=== PATIENT | male | born 1950 | race Caucasian/White ===

== ENCOUNTER 2017-05-24 17:00 | Inpatient (IN) | payer OTHER, BC ==
[2017-05-24] MEDS ORDERED: NS 0.9% 1000 ML* 1,000 ML IV ONE (17:17)
[2017-05-24 17:52] LABS: ABS Basophils 0 10^3/ul (0-0.2); ABS Eosinophils 0.1 10^3/ul (0-0.6); ABS Monocytes 0.7 10^3/ul (0-0.8); ABS Neutrophils 1.5 10^3/ul (1.5-7.7); ABS Nucleated RBC 0 10^3/ul; Eosinophil % 2.6 % (0-6); Hematocrit 46 % (42-52); Lymphocyte % 29.9 % (25-47); Mean Corpuscular HGB Conc 35 g/dl (31-36); Mean Corpuscular Hemoglobin 32 pg (27-31); Mean Corpuscular Volume 90 fL (80-94); Mean Platelet Volume 9 um3 (7.4-10.4); Nucleated Red Blood Cells % 0.1; Platelet Count 165 10^3/ul (150-450); Red Blood Count 5.06 10^6/ul (4.0-5.4); Red Cell Distribution Width 13 % (10.5-15); White Blood Count 3.3 10^3/ul (3.5-10.8)
--- NOTE | 2017-05-24 18:04 | RAD ---
INDICATION: Palpitations. COMPARISON: Comparison is made with a prior chest x-ray study from July 07, 2006. TECHNIQUE: A portable view of the chest was obtained. FINDINGS: Cardiac and mediastinal contours appear to be within normal limits. The lungs are clear. No pleural effusion is seen. IMPRESSION: NO EVIDENCE FOR ACUTE DISEASE.
[2017-05-24 18:07] LABS: EGFR Non-African American 68.5 (>60)
[2017-05-24] MEDS ORDERED: Potassium Chlor TAB* 20 MEQ TAB.ER PO ONE (19:26)
[2017-05-24] MEDS ORDERED: NS 0.9% 1000 ML* 1,000 ML IV SCH (19:45)
[2017-05-24] MEDS ORDERED: Acetaminophen TAB* 325 MG PO PRN (20:17)
[2017-05-24] MEDS: Enoxaparin(*) 80 MG/0.8 ML SYR SUBCUT SCH (22:14)
--- NOTE | 2017-05-24 22:16 | HP ---
AMENDED REPORT NOW INCLUDES COSIGNER DESIGNATION - ESIGNED BEFORE ADJUSTMENT ADMISSION HISTORY AND PHYSICAL: DATE OF ADMISSION: 05/24/17 PRIMARY CARE PHYSICIAN: Dr. Bran Roper at the [facility] in [place]. ADMITTING AND ATTENDING PHYSICIAN: Dr. Denise Bates.* (DICTATED BY SADIE PEARCE NP) CHIEF COMPLAINT: Syncope and irregular heart rate. HISTORY OF PRESENT ILLNESS: This is a very pleasant 67-year-old male patient who presented to the emergency department via EMS for a new onset atrial fibrillation. The patient reports that he had been experiencing shortness of breath over the summer and into the fall. He did have a full cardiac workup with the [facility], I think in November or December he reports and reports that that workup was completely negative. At that time, they showed no abnormalities on stress test. He just had some mild sleep apnea that was diagnosed at that time , but no cardiac issues were noted. The patient says he still has shortness of breath intermittently. 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 The patient runs dozens of miles every day. He said up to about the first 4 miles he runs, he still been clinically short of breath, which is unusual for him. Yesterday, he was doing high intensity workout. He began to feel very tired. He said he was feeling like he was catching a cold from Monday on with cough and just general malaise. He went to bed and then every time he tried to get up to go to the bathroom, he syncopized at home. He syncopized 3 times until he finally got to the point where he was so exhausted. He went to be evaluated with his doctor at the [facility] and they sent him to the emergency department for evaluation. PAST MEDICAL HISTORY: Significant only for enlarged prostate for which he takes finasteride and Flomax. PAST SURGICAL HISTORY: Reports none. MEDICATIONS: At home: 1. Finasteride 5 mg daily. 2. Flomax 0.4 mg daily. ALLERGIES: The patient has no known drug allergies. FAMILY HISTORY: Mother with cardiac disease and [place] and at age 80. SOCIAL HISTORY: The patient denies smoking, any alcohol use, or any illicit drug use. 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 REVIEW OF SYSTEMS: The patient reports some mild dizziness right now. No shortness of breath currently, but does get short of breath with any mild exertion. Denies any acute chest pain. No nausea. No vomiting. No abdominal pain. No urinary complaints. Some muscle weakness during the syncopal episodes , but currently none now. Reports no swelling, no edema, no blurry vision, no headaches, no further constitutional complaints. PHYSICAL EXAMINATION GENERAL: The patient is awake and alert. VITAL SIGNS: Currently blood pressure 100/62, O2 saturation 98%, respiratory rate 16, heart rate 77 and in atrial fibrillation, temperature is 100.1. HEENT: The patient is atraumatic and normocephalic. PERRLA with nonicteric sclerae. Oral mucosa is moist. NECK: Supple, nontender, no JVD noted. No thyromegaly appreciated. LUNGS: Clear bilaterally to auscultation with no wheezing, rhonchi, or rales. He does have an unproductive cough. CARDIOVASCULAR: Rate is in the 70s, very irregular. Atrial fibrillation on telemetry noted. No ectopy noted on his EKG. ABDOMEN: Soft, nontender, nondistended. No organomegaly appreciated. Positive bowel sounds in all 4 quadrants. MUSCULOSKELETAL: There is no clubbing, no cyanosis, no edema. He has gross motor and sensation intact. He is ambulatory, although weaker at this point and does become dizzy. NEUROLOGIC: Grossly intact with no focal deficits. PSYCHIATRIC: Cooperative and appropriate. DIAGNOSTIC STUDIES/LAB DATA: WBCs 3.3, RBCs 5.06, hemoglobin 16, hematocrit 46 , MCV 90, MCH 32, platelets 165. Sodium 137, potassium 3.7, chloride 103, CO2 26, BUN 19, creatinine 1.07, GFR 68.5, glucose 107, calcium 8.8, magnesium 2.2, bilirubin 0.8. AST 24, ALT 23, alk phos 88. First troponin 0.08. BNP 254. Total protein 6.1. TSH 1.69. EKG shows atrial fibrillation with no further ectopy and no ST segment changes. Chest x-ray shows no acute cardiopulmonary process. IMPRESSION: This is a 67-year-old male patient who is normally very healthy, but very little medical history. He was syncopized 3 times in the last 24 hours and comes to see the emergency department with a mild fever, complaint of cough and some malaise and new onset atrial fibrillation. PLAN: The patient has been admitted. I have consulted Cardiology and discussed the case with Dr. Annalisa Gupta. I have given the patient therapeutic dose of Lovenox 1 mg/kg based on his body weight of 77 kg. The patient will be n.p.o. after midnight in the event that Cardiology would like to do more invasive testing tomorrow. I will try to get a hold of his workup from the [facility] his cardiac workup. I have left a message with the [facility] to call tomorrow to see if we can get copies of his stress test, his EKGs, and echocardiogram that were done in December of last year. The patient has already received a fluid bolus in the ER. He is still moderately hypotensive. We will keep him on maintenance fluids of 75 mL/hour. At this point, the patient does not have any chest pain, will not likely need nitrates. He can have a regular dinner tonight. He is a full code. We will continue his finasteride, but hold his Flomax in light of his hypotension. We will also hold his supplements. He takes iron, D3, and vitamin C. These will be held for now. He can have Tylenol for his fever. I would like to screen him for influenza and if he can get anything up with his cough, we can screen his sputum and see if there is anything productive in his cough right now that may be contributing either a viral or bacterial illness. Given the clear chest x-ray, though I feel that may be just might have something viral at this point, but it would be worth it to explore this a little further. The rest of the patient's course will be determined by further diagnostics, laboratories and any other input from other providers as warranted during this admission. I have discussed this plan of care with Dr. Bates and Dr. Gupta, who are in agreement with the plan. SADIE PEARCE, [place] [id number]/[facility] #: [id number] MARQUES
[2017-05-25 05:30] LABS: ABS Basophils 0 10^3/ul (0-0.2); ABS Eosinophils 0.3 10^3/ul (0-0.6); ABS Lymphocytes 1.3 10^3/ul (1.0-4.8); ABS Monocytes 0.4 10^3/ul (0-0.8); ABS Nucleated RBC 0 10^3/ul; Eosinophil % 11.4 % (0-6); Hematocrit 44 % (42-52); Lymphocyte % 41.9 % (25-47); Mean Corpuscular HGB Conc 34 g/dl (31-36); Mean Corpuscular Hemoglobin 31 pg (27-31); Mean Corpuscular Volume 90 fL (80-94); Mean Platelet Volume 9 um3 (7.4-10.4); Nucleated Red Blood Cells % 0.2; Platelet Count 150 10^3/ul (150-450); Red Blood Count 4.84 10^6/ul (4.0-5.4); Red Cell Distribution Width 13 % (10.5-15)
[2017-05-25 05:42] LABS: EGFR Non-African American 83.7 (>60)
[2017-05-25 06:47] LABS: Urine Appearance Clear; Urine Blood Negative (Negative); Urine Color Yellow; Urine Ketones Negative (Negative); Urine Protein Negative (Negative); Urine Urobilinogen Negative (Negative)
[2017-05-25] MEDS: Enoxaparin(*) 80 MG/0.8 ML SYR SUBCUT SCH ×2 (08:45→19:28)
[2017-05-25] MEDS: Finasteride TAB* 5 MG PO SCH (08:46)
[2017-05-25] MEDS: Oseltamivir CAP* 75 MG CAP PO SCH ×2 (12:35→19:28)
--- NOTE | 2017-05-25 12:48 | PN ---
Subjective Date of Service: 05/25/17 Interval History: Patient seen and examined at bedside. Denies fever, chills, shortness of breath , chest discomfort, palpitations, N/V/D. Tele: Afib/flutter, rate 60-70's. Occasional HR up to 100's. Noted to have 2 second pauses. Family History: Unchanged from Admission Social History: Unchanged from Admission Past Medical History: Unchanged from Admission Objective Active Medications: Acetaminophen (Tylenol Tab*) 650 mg PO Q6H PRN Reason: FEVER/HEADACHE Enoxaparin Sodium (Lovenox(*)) 80 mg SUBCUT Q12H JENNIFER Finasteride (Proscar Tab*) 5 mg PO DAILY JENNIFER Sodium Chloride (Ns 0.9% 1000 Ml*) 1,000 mls @ 75 mls/hr IV PER RATE JENNIFER Oseltamivir Phosphate (Tamiflu Cap*) 75 mg PO BID JENNIFER Stop: 05/29/17 21:01 Vital Signs - 8 hr 05/25/17 05/25/17 05/25/17 07:16 11:45 11:47 Temperature 98.2 F 98.2 F Pulse Rate 57 85 94 Respiratory 16 16 Rate Blood Pressure 103/63 103/67 86/54 (mmHg) O2 Sat by Pulse 94 97 Oximetry Oxygen Devices in Use Now: None Appearance: NAD, sitting up in bed Ears/Nose/Mouth/Throat: Mucous Membranes Moist Respiratory: Symmetrical Chest Expansion and Respiratory Effort, Clear to Auscultation Cardiovascular: NL Sounds; No Murmurs; No JVD, - - Heart rate irregular Abdominal: NL Sounds; No Tenderness; No Distention Extremities: No Edema Skin: No Rash or Ulcers Neurological: Alert and Oriented x 3, NL Muscle Strength and Tone Lines/Tubes/Other Access: Clean, Dry and Intact Peripheral IV - site benign Nutrition: Taking PO's Result Diagrams: 05/25/17 05:14 05/26/17 06:04 Microbiology and Other Data: Microbiology 05/24/17 21:25 Influenza Types A,B Antigen (CHUCKIE) - Final Nasal Specimen received for Influenza A/B Molecular testing Assess/Plan/Problems-Billing Assessment: - Patient Problems (1) New onset a-fib Code(s): I48.91 - UNSPECIFIED ATRIAL FIBRILLATION SNOMED Code(s): 55725164 Comment: - Suspect secondary to Influenza - Rate is controlled - Echo pending - Due to baseline bradycardia, no betablockers or rate control agents - Cardiology consult, input appreciated - Continue Lovenox for now (2) Influenza B Code(s): J10.1 - FLU DUE TO OTH IDENT INFLUENZA VIRUS W OTH RESP MANIFEST SNOMED Code(s): 08992661 Comment: - Started on Tamiflu - Continue Supportive care (3) Syncope Code(s): R55 - SYNCOPE AND COLLAPSE SNOMED Code(s): 557187330 Comment: - 3 times in 24 hours - Suspect secondary to low cardiac output r/t Afib and dehydration for Influenza - Pt was also orthostatic on admission and continues to have orthostasis ( improving) - Check orthostatic VS in AM - Continue IVFs (4) BPH (benign prostatic hyperplasia) Code(s): N40.0 - BENIGN PROSTATIC HYPERPLASIA WITHOUT LOWER URINRY TRACT SYMP SNOMED Code(s): 136827513 Comment: - Continue finasteride and flomax (5) DVT prophylaxis Code(s): QYM9749 - SNOMED Code(s): 215362432 Comment: - Lovenox (6) Full code status Code(s): Z78.9 - OTHER SPECIFIED HEALTH STATUS SNOMED Code(s): 269033585 Status and Disposition: OBV to Inpatient. Discharge to home when medically stable.
[2017-05-25] MEDS: NS 0.9% 1000 ML* 1,000 ML IV SCH ×2 (13:14→19:28)
--- NOTE | 2017-05-25 16:54 | ECHO ---
Patient: LEXA BARRERA Rec#: [id number] : 1950 Date: 05/25/2017 Age: 67y Height: 177.8 cm / 70.0 in Weight: 78.9 kg / 173.9 lbs Sex: M BSA: 2 Room#: [facility] Admit Date#: 05/24/2017 Type: Inpatient Referring: Cordelia La NP Reading: Mark Coleman MD Gore Cutter: Mira Simon RN RDCS CC: Kam De Los Santos Transthoracic Echocardiogram Indication: Atrial fibrillation, syncope BP: 86/54 HR: 70 Rhythm: NSR with PVCs Findings History: NINA, BPH Technical Comments: The study quality is fair. Left Ventricle: The left ventricular chamber size is normal. Mild concentric left ventricular hypertrophy is observed. Global left ventricular wall motion and contractility are within normal limits. There is normal left ventricular systolic function. The estimated ejection fraction is 55-60%. The assessment of diastolic function is non-diagnostic. Left Atrium: The left atrium is mild to moderately dilated. Right Ventricle: The right ventricular chamber size and systolic function are within normal limits. Right Atrium: The right atrium is mild to moderately dilated. Aortic Valve: The aortic valve is trileaflet. The aortic valve leaflets are mildly thickened. There is a trace of aortic regurgitation. There is no evidence of aortic stenosis. Mitral Valve: The mitral valve leaflets are mildly thickened. There is mild mitral regurgitation. There is no evidence of mitral stenosis. Tricuspid Valve: The tricuspid valve leaflets are normal. There is trace to mild tricuspid regurgitation. No pulmonary hypertension is noted. There is no tricuspid stenosis. Pulmonic Valve: The pulmonic valve appears normal. There is trace to mild pulmonic regurgitation. There is no pulmonic stenosis. Pericardium: There is no significant pericardial effusion. A pericardial fat pad is visualized. Aorta: There is mild dilatation of the ascending aorta. There is no dilatation of the aortic arch. There is no dilation of the aortic root. Pulmonary Artery: The main pulmonary artery appears normal. Venous: The venous system is not well visualized. The inferior vena cava appears normal in size. There is less than 50% respiratory change in the inferior vena cava dimension. Summary: There was not any prior study for comparison. Conclusions Mild concentric left ventricular hypertrophy is observed. The estimated ejection fraction is 55-60%. The assessment of diastolic function is non-diagnostic. There is normal left ventricular systolic function. The left atrium is mild to moderately dilated. The right atrium is mild to moderately dilated. There is a trace of aortic regurgitation. There is mild mitral regurgitation. There is trace to mild tricuspid regurgitation. There is trace to mild pulmonic regurgitation. There is mild dilatation of the ascending aorta. Measurements Name Value Normal Range RVDdMajor (2D) 3.3 cm (2.2 - 4.4) RAd ISD 4CH 6 cm (3.4 - 4.9) RA (A4C)W 4.2 cm (2.9 - 4.6) IVSd (2D) 1.2 cm (0.6 - 1) LVPWd (2D) 1.2 cm (0.6 - 1) LVIDd (2D) 5 cm (3.6 - 5.4) LVIDs (2D) 3.7 cm - LV FS (2D) 26 % (25 - 45) Aortic Annulus 2.2 cm (1.4 - 2.6) Ao root diameter (2D) 3.4 cm (2.1 - 3.5) Ascending Ao 3.5 cm (2.1 - 3.4) Aortic arch 2.4 cm (1.8 - 3.4) LA dimension (AP) 2D 3.6 cm (2.3 - 3.8) LAd ISD 4CH 6.5 cm (2.9 - 5.3) LA ISD 4CH W 4 cm (2.5 - 4.5) Name Value Normal Range LA ESV SP 4CH (A/L) 56 ml - LA ESV SP 2CH (A/L) 50 ml - LA ESV BP (A/L) 61 ml - LA ESV BP (A/L) index 31 ml/m2 - LA ESV SP 4CH (MOD) 51 ml - LA ESV SP 2CH (MOD) 47 ml - Name Value Normal Range MV E-wave Vmax 0.52 m/sec - MV deceleration time 246 msec - LV septal e' Vmax 0.08 m/sec - LV lateral e' Vmax 0.12 m/sec - LV E:e' septal ratio 6.5 ratio - LV E:e' lateral ratio 4.3 ratio - Name Value Normal Range AV Vmax 1.1 m/sec - AV VTI 20.5 cm - AV peak gradient 4.7 mmHg - AV mean gradient 3.1 mmHg - LVOT Vmax 0.92 m/sec - LVOT VTI 16.9 cm - LVOT peak gradient 3.5 mmHg - LVOT mean gradient 2 mmHg - REGGIE Vmax 0.63 m/sec - Name Value Normal Range TR Vmax 2 m/sec - TR peak gradient 16 mmHg - RAP 8 mmHg - RVSP 24 mmHg - IVC diameter 1.7 cm - Name Value Normal Range PV Vmax 0.65 m/sec -
--- NOTE | 2017-05-25 19:58 | CONS ---
CC: [facility], Hospitalist Service * CARDIOLOGY CONSULTATION: DATE OF CONSULTATION: 05/25/17 HISTORY OF PRESENT ILLNESS: I was asked by hospitalist service to see this 67- year- old male patient who presented to the hospital with recurrent syncopal episodes and found to be atrial fibrillation. The patient was very athletic with a little past medical history other than large prostate. He is a marathon runner regularly with multiple miles on a daily basis. His resting baseline heart rate according to the patient is in the 30s. In the emergency room, he was found to be in atrial fibrillation; however, his heart rate was not fair. He was admitted to telemetry floor for treatment. He has not been feeling well actually for a few days now, malaise, fatigue, lack of energy and some fever and cough. He was tested positive for influenza A flu syndrome. He is receiving IV fluids. Cardiology consult was requested because of the atrial fibrillation, which he does not feel actually. He gives no history of atrial fibrillation in the past. He gives no history of diabetes, congenital heart disease, rheumatic fever, endocarditis. He gives no history of hypertension. No hyperlipidemia. No tobacco consumption. He rarely drink alcohol. He does actually consume significant amount of caffeinated drinks weekly. His review of all other systems essentially is negative. He gives no nausea, no vomiting, no hematochezia, no skin rash, no abdominal pain, no history of myocardial infarction, no history of coronary artery disease in the past other than feeling fatigued, tired, and exhausted. PAST MEDICAL HISTORY: Significant for prostate enlargement and he does receive Flomax and finasteride. PAST SURGICAL HISTORY: None. MEDICATIONS: As an outpatient include: 1. Flomax 0.4 mg daily. 2. Finasteride 5 mg daily. ALLERGIES: He has no known drug allergies. FAMILY HISTORY: He said his mom because of myocardial infarction, although was marked as premature. SOCIAL HISTORY: He gives no history of smoking. No drug abuse. He drinks alcohol socially. REVIEW OF SYSTEMS: His review of all other systems essentially is negative. PHYSICAL EXAMINATION: On exam, he is awake, alert, and oriented. He is not in acute distress. He looks much younger than his age. His vitals, blood pressure is 103/67, pulse is 75. He is in atrial fibrillation, irregularly irregular. He is afebrile with temperature 98.2. Today on exam, normocephalic , atraumatic head. Ears, Nose, and Throat: Essentially benign. Neck: Supple. JVP is not elevated. No carotid bruits. No masses in the neck is appreciated. Chest: Clear to auscultation. No rales, no wheezes, no added sounds appreciated. Heart: Normal but irregularly irregular. S1, S2. No added sounds. No gallops, no rubs. Abdomen: Benign, soft. Positive bowel sounds. Extremities: No edema. No cyanosis. No clubbing. Skin exam is normal. Psych: Normal affect and mood. BABY NURSE: No focal deficit is appreciated. DIAGNOSTIC STUDIES/LAB DATA: His EKG showed him to be in atrial fibrillation, nonspecific T-wave abnormality, heart rate is in the 70s. His labs showed the following: White blood cells 3, hemoglobin 15, hematocrit 44, and platelets 150. His chemistry: Sodium 137, potassium 4.2, chloride 109 , total CO2 23, BUN 18, creatinine 0.90. His troponin is 0.08 and then 0.07 and then 0.07. His BNP was 264. TSH was 1.69. His chest x-ray was reported to have no evidence for acute disease. IMPRESSION: The patient is a 67-year-old with: 1. Presentation with feeling malaise, fatigue, the flu symptoms and tested positive for influenza A flu illness. 2. Atrial fibrillation, unknown duration, presumptive, new, heart rate is less than 100. He is asymptomatic. He does not feel it. 3. Recurrent syncope x3, which could be multifactorial in nature including flu influenza syndrome, atrial fibrillation, dehydration. 4. The patient is a marathon runner extensively and he does use high caffeinated consumption drinks. 5. Abnormal EKG as described. 6. Unknown current left ventricular systolic function. PLAN: Lengthy discussion. 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 As discussed, I already discussed with him. They are willing to see him for a consultation. According to EP services, he is a good candidate actually for radiofrequency ablation for treatment for his atrial fibrillation. I have expressed this to the patient. He is willing to proceed. Alternatively, we can do transesophageal echocardiogram with cardioversion. Risks of unsuccessful or risks of significant long pauses, asystole, and prolonged recovery, sinus recovery time discussed with the patient. He wants to wait and see at the present time. I answered all his concerns and questions up to his satisfaction. We will follow him closely. We will make further recommendations accordingly. Before he get discharged from [facility], we will arrange for Electrophysiology consultation at [facility]. [id number]/[facility] #: [id number] MARQUES
[2017-05-26] MEDS: NS 0.9% 1000 ML* 1,000 ML IV SCH ×2 (01:59→08:42)
[2017-05-26 06:41] LABS: EGFR Non-African American 97.2 (>60)
[2017-05-26] MEDS: Finasteride TAB* 5 MG PO SCH (08:38)
[2017-05-26] MEDS: Enoxaparin(*) 80 MG/0.8 ML SYR SUBCUT SCH (08:38)
[2017-05-26] MEDS: Oseltamivir CAP* 75 MG CAP PO SCH (08:38)
[2017-05-26 08:54] VITALS: BP 104/69
[2017-05-26] MEDS ORDERED: Finasteride TAB* 5 MG PO SCH (09:51)
--- NOTE | 2017-05-26 11:49 | ED ---
Mauri Thompson Angela, scribed for Jonathan Mckeon MD on 05/24/17 at 1709 . Palpitations / Dysrhythmia - HPI Summary HPI Summary: This pt is a 67 y/o male [place] [facility] [place] clinic for new onset of atrial fibrillation. Pt reports he had 3 syncopal episode last night trying to go to the bathroom. Pt notes he took his pulses and noticed it was irregular. He went to the CT clinic this morning and was diagnosed with a new onset of atrial fibrillation. He currently notes some dizziness with movement. Pt denies chest pain or SOB. PMHx: BPH. Pt takes 2 pills for prostate. - History of Current Complaint Time Seen by Provider: 05/24/17 17:06 Hx Obtained From: Patient Onset/Duration: Lasting Hours, Still Present Timing: Constant Severity Initially: Moderate Character: Irregular Aggravating: Exertion, Position Alleviating: Nothing Associated Signs & Symptoms: Dizzy, Syncope - last night - Allergy/Home Medications Allergies/Adverse Reactions: Allergies Allergy/AdvReac Type Severity Reaction Status Date / Time No Known Allergies Allergy Verified 11/25/13 11:25 Home Medications: Home Medications Finasteride TAB* [Proscar TAB*] 5 mg PO DAILY 05/24/17 [History Confirmed ] PMH/Surg Hx/FS Hx/Imm Hx Endocrine/Hematology History: Denies: Hx Diabetes, Hx Thyroid Disease Cardiovascular History: Reports: Other Cardiovascular Problems/Disorders - pt is a runner. low heart rate noted today Denies: Hx Congestive Heart Failure, Hx Hypertension, Hx Pacemaker/ICD Respiratory History: Denies: Hx Asthma, Hx Chronic Obstructive Pulmonary Disease (COPD) GI History: Denies: Hx Ulcer History: Reports: Hx Benign Prostatic Hyperplasia Denies: Hx Dialysis, Hx Renal Disease Musculoskeletal History: Denies: Hx Rheumatoid Arthritis, Hx Osteoporosis Sensory History: Reports: Hx Contacts or Glasses Denies: Hx Hearing Aid Opthamlomology History: Reports: Hx Contacts or Glasses Psychiatric History: Denies: Hx Panic Disorder - Surgical History Surgery Procedure, Year, and Place: tonsillectomy Infectious Disease History: Denies: Hx Clostridium Difficile, Hx Hepatitis, Hx Human Immunodeficiency Virus (HIV), Hx of Known/Suspected MRSA, Hx Shingles, Hx Tuberculosis, Hx Known/ Suspected VRE, Hx Known/Suspected VRSA, History Other Infectious Disease - Family History Known Family History: Positive: Cardiac Disease - Mother: fatal PR Family History: Father: BPH and dementia. - Social History Alcohol Use: None Substance Use Type: Reports: None Smoking Status (MU): Never Smoked Tobacco Have You Smoked in the Last Year: No Review of Systems Negative: Fever, Chills Cardiovascular: Other - new onset of atrial fibrillation Negative: Chest Pain Negative: Shortness Of Breath Neurological: Other - POS: dizziness Positive: Syncope - last night All Other Systems Reviewed And Are Negative: Yes Physical Exam - Summary Physical Exam Summary: VITAL SIGNS: Reviewed. GENERAL: Patient is a well-developed and nourished male who is lying comfortable in the stretcher. Patient is not in any acute respiratory distress. HEAD AND FACE: No signs of trauma. No ecchymosis, hematomas or skull depressions. No sinus tenderness. EYES: PERRLA, EOMI x 2, No injected conjunctiva, no nystagmus. EARS: Hearing grossly intact. Ear canals and tympanic membranes are within normal limits. MOUTH: Oropharynx within normal limits. NECK: Supple, trachea is midline, no adenopathy, no JVD, no carotid bruit, no c- spine tenderness, neck with full ROM. CHEST: Symmetric, no tenderness at palpation LUNGS: Clear to auscultation bilaterally. No wheezing or crackles. CVS: Irregular rate and rhythm, S1 and S2 present, no murmurs or gallops appreciated. ABDOMEN: Soft, non-tender. No signs of distention. No rebound no guarding, and no masses palpated. Bowel sounds are normal. EXTREMITIES: FROM in all major joints, no edema, no cyanosis or clubbing. NEURO: Alert and oriented x 3. No acute neurological deficits. Speech is normal and follows commands. SKIN: Dry and warm Triage Information Reviewed: Yes Vital Signs On Initial Exam: Initial Vitals BP 99/70 05/24/17 17:05 Vital Signs Reviewed: Yes Diagnostics - Vital Signs Vital Signs Temp Pulse Resp BP Pulse Ox 05/25/17 20:20 98.6 F 53 20 107/68 97 05/25/17 15:40 72 86/60 05/25/17 15:18 98.2 F 79 97 05/25/17 11:47 94 86/54 05/25/17 11:45 98.2 F 85 16 103/67 97 05/25/17 07:16 98.2 F 57 16 103/63 94 05/25/17 03:58 97.9 F 72 16 89/57 92 05/25/17 00:17 98.4 F 83 20 97/58 95 05/24/17 21:43 80 91/40 05/24/17 21:34 52 89/63 96 05/24/17 20:14 99.1 F 98 20 88/65 100 05/24/17 19:13 100.1 F 77 16 100/62 98 05/24/17 19:00 69 22 100/62 94 05/24/17 18:30 75 22 97/70 95 05/24/17 18:00 67 18 104/66 96 05/24/17 17:30 77 17 89/54 94 05/24/17 17:08 71 16 94 05/24/17 17:06 100.1 F 82 18 99/70 95 05/24/17 17:05 99/70 - Laboratory Lab Results: Lab Results 05/24/17 05/24/17 05/24/17 Range/Units 17:35 17:35 17:35 WBC 3.3 L (3.5-10.8) 10^3/ul RBC 5.06 (4.0-5.4) 10^6/ul Hgb 16.0 (14.0-18.0) g/dl Hct 46 (42-52) % MCV 90 (80-94) fL MCH 32 H (27-31) pg MCHC 35 (31-36) g/dl RDW 13 (10.5-15) % Plt Count 165 (150-450) 10^3/ul MPV 9 (7.4-10.4) um3 Neut % (Auto) 46.4 (38-83) % Lymph % (Auto) 29.9 (25-47) % [place] % (Auto) 20.4 H (1-9) % Eos % (Auto) 2.6 (0-6) % Baso % (Auto) 0.7 (0-2) % Absolute Neuts (auto) 1.5 (1.5-7.7) 10^3/ul Absolute Lymphs (auto) 1.0 (1.0-4.8) 10^3/ul Absolute Monos (auto) 0.7 (0-0.8) 10^3/ul Absolute Eos (auto) 0.1 (0-0.6) 10^3/ul Absolute Basos (auto) 0 (0-0.2) 10^3/ul Absolute Nucleated RBC 0 10^3/ul Nucleated RBC % 0.1 Sodium 137 (133-145) mmol/L Potassium 3.7 (3.5-5.0) mmol/L Chloride 103 (101-111) mmol/L Carbon Dioxide 26 (22-32) mmol/L Anion Gap 8 (2-11) mmol/L BUN 19 (6-24) mg/dL Creatinine 1.07 (0.67-1.17) mg/dL Est GFR ( Amer) 88.1 (>60) Est GFR (Non-Af Amer) 68.5 (>60) BUN/Creatinine Ratio 17.8 (8-20) Glucose 107 H (70-100) mg/dL Calcium 8.8 (8.6-10.3) mg/dL Magnesium 2.2 (1.9-2.7) mg/dL Total Bilirubin 0.80 (0.2-1.0) mg/dL AST 34 (13-39) U/L ALT 23 (7-52) U/L Alkaline Phosphatase 88 (34-104) U/L Total Creatine Kinase 118 (10-223) U/L Troponin I 0.08 H* (<0.04) ng/mL B-Natriuretic Peptide 264 H ( - 100) pg/mL Total Protein 6.1 L (6.4-8.9) g/dL Albumin 3.7 (3.2-5.2) g/dL Globulin 2.4 (2-4) g/dL Albumin/Globulin Ratio 1.5 (1-3) TSH 1.69 (0.34-5.60) mcIU/mL Urine Color Urine Appearance Urine pH (5-9) Ur Specific [place] (1.010-1.030) Urine Protein (Negative) Urine Ketones (Negative) Urine Blood (Negative) Urine Nitrate (Negative) Urine Bilirubin (Negative) Urine Urobilinogen (Negative) Ur Leukocyte Esterase (Negative) Urine Glucose (Negative) Influenza A (Rapid) (Negative) Influenza B (Rapid) (Negative) 05/24/17 05/24/17 05/25/17 Range/Units 20:52 21:37 00:34 WBC (3.5-10.8) 10^3/ul RBC (4.0-5.4) 10^6/ul Hgb (14.0-18.0) g/dl Hct (42-52) % MCV (80-94) fL MCH (27-31) pg MCHC (31-36) g/dl RDW (10.5-15) % Plt Count (150-450) 10^3/ul MPV (7.4-10.4) um3 Neut % (Auto) (38-83) % Lymph % (Auto) (25-47) % [place] % (Auto) (1-9) % Eos % (Auto) (0-6) % Baso % (Auto) (0-2) % Absolute Neuts (auto) (1.5-7.7) 10^3/ul Absolute Lymphs (auto) (1.0-4.8) 10^3/ul Absolute Monos (auto) (0-0.8) 10^3/ul Absolute Eos (auto) (0-0.6) 10^3/ul Absolute Basos (auto) (0-0.2) 10^3/ul Absolute Nucleated RBC 10^3/ul Nucleated RBC % Sodium (133-145) mmol/L Potassium (3.5-5.0) mmol/L Chloride (101-111) mmol/L Carbon Dioxide (22-32) mmol/L Anion Gap (2-11) mmol/L BUN (6-24) mg/dL Creatinine (0.67-1.17) mg/dL Est GFR ( Amer) (>60) Est GFR (Non-Af Amer) (>60) BUN/Creatinine Ratio (8-20) Glucose (70-100) mg/dL Calcium (8.6-10.3) mg/dL Magnesium (1.9-2.7) mg/dL Total Bilirubin (0.2-1.0) mg/dL AST (13-39) U/L ALT (7-52) U/L Alkaline Phosphatase (34-104) U/L Total Creatine Kinase (10-223) U/L Troponin I 0.07 H* 0.07 H* (<0.04) ng/mL B-Natriuretic Peptide ( - 100) pg/mL Total Protein (6.4-8.9) g/dL Albumin (3.2-5.2) g/dL Globulin (2-4) g/dL Albumin/Globulin Ratio (1-3) TSH (0.34-5.60) mcIU/mL Urine Color Urine Appearance Urine pH (5-9) Ur Specific [place] (1.010-1.030) Urine Protein (Negative) Urine Ketones (Negative) Urine Blood (Negative) Urine Nitrate (Negative) Urine Bilirubin (Negative) Urine Urobilinogen (Negative) Ur Leukocyte Esterase (Negative) Urine Glucose (Negative) Influenza A (Rapid) Negative (Negative) Influenza B (Rapid) Positive H (Negative) 05/25/17 05/25/17 05/25/17 Range/Units 05:14 05:14 06:10 WBC 3.0 L (3.5-10.8) 10^3/ul RBC 4.84 (4.0-5.4) 10^6/ul Hgb 15.0 (14.0-18.0) g/dl Hct 44 (42-52) % MCV 90 (80-94) fL MCH 31 (27-31) pg MCHC 34 (31-36) g/dl RDW 13 (10.5-15) % Plt Count 150 (150-450) 10^3/ul MPV 9 (7.4-10.4) um3 Neut % (Auto) 33.0 L (38-83) % Lymph % (Auto) 41.9 (25-47) % [place] % (Auto) 12.5 H (1-9) % Eos % (Auto) 11.4 H (0-6) % Baso % (Auto) 1.2 (0-2) % Absolute Neuts (auto) 1.0 L (1.5-7.7) 10^3/ul Absolute Lymphs (auto) 1.3 (1.0-4.8) 10^3/ul Absolute Monos (auto) 0.4 (0-0.8) 10^3/ul Absolute Eos (auto) 0.3 (0-0.6) 10^3/ul Absolute Basos (auto) 0 (0-0.2) 10^3/ul Absolute Nucleated RBC 0 10^3/ul Nucleated RBC % 0.2 Sodium 137 (133-145) mmol/L Potassium 4.2 (3.5-5.0) mmol/L Chloride 109 (101-111) mmol/L Carbon Dioxide 23 (22-32) mmol/L Anion Gap 5 (2-11) mmol/L BUN 18 (6-24) mg/dL Creatinine 0.90 (0.67-1.17) mg/dL Est GFR ( Amer) 107.6 (>60) Est GFR (Non-Af Amer) 83.7 (>60) BUN/Creatinine Ratio 20.0 (8-20) Glucose 89 (70-100) mg/dL Calcium 7.8 L (8.6-10.3) mg/dL Magnesium (1.9-2.7) mg/dL Total Bilirubin 0.80 (0.2-1.0) mg/dL AST 28 (13-39) U/L ALT 21 (7-52) U/L Alkaline Phosphatase 66 (34-104) U/L Total Creatine Kinase (10-223) U/L Troponin I (<0.04) ng/mL B-Natriuretic Peptide ( - 100) pg/mL Total Protein 5.4 L (6.4-8.9) g/dL Albumin 3.1 L (3.2-5.2) g/dL Globulin 2.3 (2-4) g/dL Albumin/Globulin Ratio 1.3 (1-3) TSH (0.34-5.60) mcIU/mL Urine Color Yellow Urine Appearance Clear Urine pH 5.0 (5-9) Ur Specific [place] 1.020 (1.010-1.030) Urine Protein Negative (Negative) Urine Ketones Negative (Negative) Urine Blood Negative (Negative) Urine Nitrate Negative (Negative) Urine Bilirubin Negative (Negative) Urine Urobilinogen Negative (Negative) Ur Leukocyte Esterase Negative (Negative) Urine Glucose Negative (Negative) Influenza A (Rapid) (Negative) Influenza B (Rapid) (Negative) Result Diagrams: 05/25/17 05:14 05/26/17 06:04 Lab Statement: Any lab studies that have been ordered have been reviewed, and results considered in the medical decision making process. - Radiology Chest XR Xray Interpretation: No Acute Changes - IMPRESSION: No evidence for acute disease. Dr. Mckeon has reviewed this radiology report. Radiology Interpretation Completed By: Radiologist - EKG 17:15 Cardiac Rate: NL EKG Rhythm: Atrial Fibrillation - at 87 bpm EKG Interpretation: No ST elevation Course/Dx - Course Assessment/Plan: This pt is a 67 y/o male presenting to [facility] via EMS from CT clinic for new onset of atrial fibrillation. Pt reports he had 3 syncopal episode last night trying to go to the bathroom. Pt notes he took his pulses and noticed it was irregular. He went to the CT clinic this morning and was diagnosed with a new onset of atrial fibrillation. He currently notes some dizziness with movement. Pt denies chest pain or SOB. PMHx: BPH. Pt takes 2 pills for prostate. Test results without any significant abnormalities except troponin of 0.08, BNP of 264. Chest XR: No evidence for acute disease. EKG shows new onset of atrial fibrillation. The pt had 3 syncopal episodes today. Therefore I discussed the pts case with Dr. Bates, who accepted the pt for admission. Pt is hemodynamically stable, alert and oriented x3. - Diagnoses Differential Diagnosis/HQI/PQRI: Positive: Paroxymal SVT, V-Tach, Other - Atrial fibrillation Provider Diagnoses: New onset atrial fibrillation - Physician Notifications Discussed Care Of Patient With: Denise Bates Time Discussed With Above Provider: 18:23 Instructed by Provider To: Other - I discussed pt care with Dr. Bates, hospitalist, who has agreed to admit the pt. Discharge - Discharge Plan Condition: Stable Disposition: ADMITTED TO [facility] The documentation as recorded by the Mauri nava Angela accurately reflects the service I personally performed and the decisions made by me, Jonathan Mckeon MD.
[2017-05-26] MEDS ORDERED: Magnesium Oxide TAB* 400 MG PO ONE (13:37)
--- NOTE | 2017-05-26 13:44 | PN ---
Subjective Date of Service: 05/26/17 Interval History: Pt is feeling well. He denies any lightheadedness/dizziness. He is anxious to go home. He denies any pain or significant cough. Family History: Unchanged from Admission Social History: Unchanged from Admission Past Medical History: Unchanged from Admission Objective Active Medications: Acetaminophen (Tylenol Tab*) 650 mg PO Q6H PRN PRN Reason: FEVER/HEADACHE Enoxaparin Sodium (Lovenox(*)) 80 mg SUBCUT Q12H [facility] Last Admin: 05/26/17 08:38 Dose: 80 mg Finasteride (Proscar Tab*) 5 mg PO DAILY [facility] Sodium Chloride (Ns 0.9% 1000 Ml*) 1,000 mls @ 150 mls/hr IV PER RATE [facility] Last Admin: 05/26/17 08:42 Dose: 150 mls/hr Magnesium Oxide (Magox 400 Tab*) 800 mg PO ONCE ONE Stop: 05/26/17 13:38 Oseltamivir Phosphate (Tamiflu Cap*) 75 mg PO BID [facility] Stop: 05/29/17 21:01 Last Admin: 05/26/17 08:38 Dose: 75 mg Tamsulosin HCl (Flomax Cap*) 0.4 mg PO BEDTIME [facility] Vital Signs - 8 hr 05/26/17 05/26/17 08:00 08:05 Temperature 98.5 F Pulse Rate 57 48 Respiratory 16 16 Rate Blood Pressure 111/68 104/69 (mmHg) O2 Sat by Pulse 95 Oximetry Oxygen Devices in Use Now: None Appearance: Middle aged male sitting up in bed, NAD Eyes: No Scleral Icterus Ears/Nose/Mouth/Throat: Mucous Membranes Moist Respiratory: Symmetrical Chest Expansion and Respiratory Effort, Clear to Auscultation Cardiovascular: NL Sounds; No Murmurs; No JVD, No Edema, - - bradycardic but regular Abdominal: NL Sounds; No Tenderness; No Distention Extremities: No Clubbing, Cyanosis Skin: No Rash or Ulcers, No Nodules or Sclerosis Neurological: Alert and Oriented x 3 Result Diagrams: 05/25/17 05:14 05/26/17 06:04 Additional Lab and Data: Lab Results 05/24/17 05/24/17 05/24/17 Range/Units 17:35 17:35 17:35 WBC 3.3 L (3.5-10.8) 10^3/ul RBC 5.06 (4.0-5.4) 10^6/ul Hgb 16.0 (14.0-18.0) g/dl Hct 46 (42-52) % MCV 90 (80-94) fL MCH 32 H (27-31) pg MCHC 35 (31-36) g/dl RDW 13 (10.5-15) % Plt Count 165 (150-450) 10^3/ul MPV 9 (7.4-10.4) um3 Neut % (Auto) 46.4 (38-83) % Lymph % (Auto) 29.9 (25-47) % [place] % (Auto) 20.4 H (1-9) % Eos % (Auto) 2.6 (0-6) % Baso % (Auto) 0.7 (0-2) % Absolute Neuts (auto) 1.5 (1.5-7.7) 10^3/ul Absolute Lymphs (auto) 1.0 (1.0-4.8) 10^3/ul Absolute Monos (auto) 0.7 (0-0.8) 10^3/ul Absolute Eos (auto) 0.1 (0-0.6) 10^3/ul Absolute Basos (auto) 0 (0-0.2) 10^3/ul Absolute Nucleated RBC 0 10^3/ul Nucleated RBC % 0.1 Sodium 137 (133-145) mmol/L Potassium 3.7 (3.5-5.0) mmol/L Chloride 103 (101-111) mmol/L Carbon Dioxide 26 (22-32) mmol/L Anion Gap 8 (2-11) mmol/L BUN 19 (6-24) mg/dL Creatinine 1.07 (0.67-1.17) mg/dL Est GFR ( Amer) 88.1 (>60) Est GFR (Non-Af Amer) 68.5 (>60) BUN/Creatinine Ratio 17.8 (8-20) Glucose 107 H (70-100) mg/dL Calcium 8.8 (8.6-10.3) mg/dL Magnesium 2.2 (1.9-2.7) mg/dL Total Bilirubin 0.80 (0.2-1.0) mg/dL AST 34 (13-39) U/L ALT 23 (7-52) U/L Alkaline Phosphatase 88 (34-104) U/L Total Creatine Kinase 118 (10-223) U/L Troponin I 0.08 H* (<0.04) ng/mL B-Natriuretic Peptide 264 H ( - 100) pg/mL Total Protein 6.1 L (6.4-8.9) g/dL Albumin 3.7 (3.2-5.2) g/dL Globulin 2.4 (2-4) g/dL Albumin/Globulin Ratio 1.5 (1-3) TSH 1.69 (0.34-5.60) mcIU/mL Urine Color Urine Appearance Urine pH (5-9) Ur Specific [place] (1.010-1.030) Urine Protein (Negative) Urine Ketones (Negative) Urine Blood (Negative) Urine Nitrate (Negative) Urine Bilirubin (Negative) Urine Urobilinogen (Negative) Ur Leukocyte Esterase (Negative) Urine Glucose (Negative) Influenza A (Rapid) (Negative) Influenza B (Rapid) (Negative) 05/24/17 05/24/17 05/25/17 Range/Units 20:52 21:37 00:34 WBC (3.5-10.8) 10^3/ul RBC (4.0-5.4) 10^6/ul Hgb (14.0-18.0) g/dl Hct (42-52) % MCV (80-94) fL MCH (27-31) pg MCHC (31-36) g/dl RDW (10.5-15) % Plt Count (150-450) 10^3/ul MPV (7.4-10.4) um3 Neut % (Auto) (38-83) % Lymph % (Auto) (25-47) % [place] % (Auto) (1-9) % Eos % (Auto) (0-6) % Baso % (Auto) (0-2) % Absolute Neuts (auto) (1.5-7.7) 10^3/ul Absolute Lymphs (auto) (1.0-4.8) 10^3/ul Absolute Monos (auto) (0-0.8) 10^3/ul Absolute Eos (auto) (0-0.6) 10^3/ul Absolute Basos (auto) (0-0.2) 10^3/ul Absolute Nucleated RBC 10^3/ul Nucleated RBC % Sodium (133-145) mmol/L Potassium (3.5-5.0) mmol/L Chloride (101-111) mmol/L Carbon Dioxide (22-32) mmol/L Anion Gap (2-11) mmol/L BUN (6-24) mg/dL Creatinine (0.67-1.17) mg/dL Est GFR ( Amer) (>60) Est GFR (Non-Af Amer) (>60) BUN/Creatinine Ratio (8-20) Glucose (70-100) mg/dL Calcium (8.6-10.3) mg/dL Magnesium (1.9-2.7) mg/dL Total Bilirubin (0.2-1.0) mg/dL AST (13-39) U/L ALT (7-52) U/L Alkaline Phosphatase (34-104) U/L Total Creatine Kinase (10-223) U/L Troponin I 0.07 H* 0.07 H* (<0.04) ng/mL B-Natriuretic Peptide ( - 100) pg/mL Total Protein (6.4-8.9) g/dL Albumin (3.2-5.2) g/dL Globulin (2-4) g/dL Albumin/Globulin Ratio (1-3) TSH (0.34-5.60) mcIU/mL Urine Color Urine Appearance Urine pH (5-9) Ur Specific [place] (1.010-1.030) Urine Protein (Negative) Urine Ketones (Negative) Urine Blood (Negative) Urine Nitrate (Negative) Urine Bilirubin (Negative) Urine Urobilinogen (Negative) Ur Leukocyte Esterase (Negative) Urine Glucose (Negative) Influenza A (Rapid) Negative (Negative) Influenza B (Rapid) Positive H (Negative) 05/25/17 05/25/17 05/25/17 Range/Units 05:14 05:14 06:10 WBC 3.0 L (3.5-10.8) 10^3/ul RBC 4.84 (4.0-5.4) 10^6/ul Hgb 15.0 (14.0-18.0) g/dl Hct 44 (42-52) % MCV 90 (80-94) fL MCH 31 (27-31) pg MCHC 34 (31-36) g/dl RDW 13 (10.5-15) % Plt Count 150 (150-450) 10^3/ul MPV 9 (7.4-10.4) um3 Neut % (Auto) 33.0 L (38-83) % Lymph % (Auto) 41.9 (25-47) % [place] % (Auto) 12.5 H (1-9) % Eos % (Auto) 11.4 H (0-6) % Baso % (Auto) 1.2 (0-2) % Absolute Neuts (auto) 1.0 L (1.5-7.7) 10^3/ul Absolute Lymphs (auto) 1.3 (1.0-4.8) 10^3/ul Absolute Monos (auto) 0.4 (0-0.8) 10^3/ul Absolute Eos (auto) 0.3 (0-0.6) 10^3/ul Absolute Basos (auto) 0 (0-0.2) 10^3/ul Absolute Nucleated RBC 0 10^3/ul Nucleated RBC % 0.2 Sodium 137 (133-145) mmol/L Potassium 4.2 (3.5-5.0) mmol/L Chloride 109 (101-111) mmol/L Carbon Dioxide 23 (22-32) mmol/L Anion Gap 5 (2-11) mmol/L BUN 18 (6-24) mg/dL Creatinine 0.90 (0.67-1.17) mg/dL Est GFR ( Amer) 107.6 (>60) Est GFR (Non-Af Amer) 83.7 (>60) BUN/Creatinine Ratio 20.0 (8-20) Glucose 89 (70-100) mg/dL Calcium 7.8 L (8.6-10.3) mg/dL Magnesium (1.9-2.7) mg/dL Total Bilirubin 0.80 (0.2-1.0) mg/dL AST 28 (13-39) U/L ALT 21 (7-52) U/L Alkaline Phosphatase 66 (34-104) U/L Total Creatine Kinase (10-223) U/L Troponin I (<0.04) ng/mL B-Natriuretic Peptide ( - 100) pg/mL Total Protein 5.4 L (6.4-8.9) g/dL Albumin 3.1 L (3.2-5.2) g/dL Globulin 2.3 (2-4) g/dL Albumin/Globulin Ratio 1.3 (1-3) TSH (0.34-5.60) mcIU/mL Urine Color Yellow Urine Appearance Clear Urine pH 5.0 (5-9) Ur Specific [place] 1.020 (1.010-1.030) Urine Protein Negative (Negative) Urine Ketones Negative (Negative) Urine Blood Negative (Negative) Urine Nitrate Negative (Negative) Urine Bilirubin Negative (Negative) Urine Urobilinogen Negative (Negative) Ur Leukocyte Esterase Negative (Negative) Urine Glucose Negative (Negative) Influenza A (Rapid) (Negative) Influenza B (Rapid) (Negative) Microbiology and Other Data: Microbiology 05/24/17 21:25 Influenza Types A,B Antigen (CHUCKIE) - Final Nasal Specimen received for Influenza A/B Molecular testing Assess/Plan/Problems-Billing Mr Silverio is a 67 yo M who has a h/o BPH who presented to the ER after having several episodes of syncope the night prior to admission. - Patient Problems (1) New onset a-fib Current Visit: Yes Status: Acute Code(s): I48.91 - UNSPECIFIED ATRIAL FIBRILLATION SNOMED Code(s): 34464221 Comment: ? if secondary to influenza vs if it has been a more longstanding issue as the patient could not feel palpitations while in afib. No rate control agents-he has converted to NSR. Will start ASA 81mg daily for his CHADS2-Vasc score of 1 (age 65-74). Dr. Coleman has recommended EP evaluation. The patient will be contacted by the EP group in [place] with an appt date/time. (2) Syncope Current Visit: Yes Status: Acute Code(s): R55 - SYNCOPE AND COLLAPSE SNOMED Code(s): 937894433 Comment: I suspect the patient's syncope was likely related to volume depletion secondary to influenza in addition to afib vs baseline bradycardia. He is no longer orthostatic. Will get the patient up and walking in the [place] but if stable d/c home. (3) Influenza B Current Visit: Yes Status: Acute Code(s): J10.1 - FLU DUE TO OTH IDENT INFLUENZA VIRUS W OTH RESP MANIFEST SNOMED Code(s): 65999067 Comment: Continue tamiflu-he has had 3 of 10 doses. (4) Leukopenia Current Visit: Yes Status: Acute Code(s): D72.819 - DECREASED WHITE BLOOD CELL COUNT, UNSPECIFIED SNOMED Code(s): 72507936 Comment: The patient has been leukopenic dating back to 2013. This needs to be followed up as outpatient. (5) BPH (benign prostatic hyperplasia) Current Visit: Yes Status: Chronic Code(s): N40.0 - BENIGN PROSTATIC HYPERPLASIA WITHOUT LOWER URINRY TRACT SYMP SNOMED Code(s): 181534289 Comment: Continue finasteride and flomax (6) DVT prophylaxis Current Visit: Yes Status: Acute Code(s): PEZ3629 - SNOMED Code(s): 212931281 Comment: lovenox (7) Full code status Current Visit: Yes Status: Acute Code(s): Z78.9 - OTHER SPECIFIED HEALTH STATUS SNOMED Code(s): 361771551 Status and Disposition: OBV to Inpatient. Discharge to home when medically stable.
[2017-05-26] MEDS ORDERED: Tamsulosin CAP* 0.4 MG PO SCH (21:00)
--- NOTE | 2017-05-26 23:36 | DS ---
CC: Dr. Roper; Dr. Coleman * DISCHARGE SUMMARY: DATE OF ADMISSION: 05/24/17 DATE OF DISCHARGE: 05/26/17 PRIMARY CARE PROVIDER: Dr. Roper. ASSOCIATE LOAN OFFICER: Dr. Coleman. PRINCIPLE DIAGNOSES: 1. Syncope, likely secondary to volume depletion in the setting of atrial fibrillation versus resting bradycardia. 2. New onset atrial fibrillation. 3. Influenza. 4. Leukopenia. 5. Benign prostatic hyperplasia. DISCHARGE MEDICATIONS: 1. Aspirin 81 mg p.o. daily (new). 2. Tamiflu 75 mg p.o. twice daily x7 doses. 3. Flomax 0.4 mg p.o. daily. 4. Finasteride 5 mg p.o. daily. HOSPITAL COURSE: Mr. Silverio is a 67-year-old male who for few days prior to admission had been feeling poorly. Additionally he had been noting that when he was out running which he does on a daily basis, he was more short of breath than he had been previously. This has been dating back to the summer/early fall. The patient reported that he had a negative cardiac workup in late summer or December. He states this was negative. The patient presented to the emergency room ultimately because he had 3 syncopal episodes the night prior. The patient was admitted for evaluation of syncope and new onset atrial fibrillation. Additionally, the patient was identified to be positive for influenza B. The patient was in rate controlled atrial fibrillation on presentation. Given his usual bradycardic rate, the decision was made not to start any rate-reducing agents. He was started on Lovenox. A cardiology consultation was requested. The patient was seen by Dr. Coleman who recommended possible outpatient EP evaluation. The patient did spontaneously convert to normal sinus rhythm on the evening of 05/25/17. The patient has been in normal sinus rhythm since. It is still recommended that patient follow up with Electrophysiology due to the diagnosed atrial fibrillation and bradycardia at baseline as treating/managing his atrial fibrillation could be problematic due to his usual bradycardic rate. The patient will be started on aspirin 81 mg daily for his CHADS2-VASc score of 1. I suspect the patient's syncope was related to volume depletion likely related to having influenza as well as either being in atrial fibrillation with poor atrial kick versus his baseline bradycardia. The patient has been aggressively hydrated. His orthostasis has resolved. The patient will be ambulated around the telemetry floor prior to discharge to ensure he is asymptomatic. As noted above, the patient was diagnosed with influenza. This likely accounts for his feeling poorly over the few days prior to admission. Of note, the patient did have an elevated troponin of 0.08 to 0.07 x2. This likely represents demand ischemia. The patient did undergo transthoracic echocardiogram, which revealed mild concentric LVH with normal left ventricular wall motion and contractility. The patient's ejection fraction was also estimated to be 55% to 60%. The patient will follow up with Dr. Coleman as an outpatient in about 1 month. Additionally, he will be establishing care with an rn internship in [place]. FOLLOWUP CONCERNS: The patient is being discharged home today 05/26/17. Activity level is as tolerated. Diet is regular. CONDITION ON DISCHARGE: Stable. TIME SPENT: Thirty five minutes was spent discharging this patient. [id number]/CPS #: [id number] MTDD
[2017-05-27] MEDS ORDERED: Tamsulosin CAP* 0.4 MG PO SCH (09:00)
== END 2017-05-26 15:00 | disposition home or self-care (01) | DRG 309 ==
LOC: ED 17:00 → MEDTELE 18:46 → OBSVTOIN 05-25 22:03
PROVIDERS: ADMIT Nurse Practitioner Adult Health; ATTEND Internal Medicine
DX: I48.91 Unspecified atrial fibrillation (principal); I24.8 Other forms of acute ischemic heart disease; R55 Syncope and collapse; E86.9 Volume depletion, unspecified; J10.1 Influenza due to other identified influenza virus with other respiratory manifestations; D72.819 Decreased white blood cell count, unspecified; N40.0 Benign prostatic hyperplasia without lower urinary tract symptoms; R74.8 Abnormal levels of other serum enzymes; R00.1 Bradycardia, unspecified; Z79.899 Other long term (current) drug therapy; Z82.49 Family history of ischemic heart disease and other diseases of the circulatory system
CPT/HCPCS: 36415; 71045; 80048; 80053; 81003; 82550; 83735; 83880; 84443; 84484; 85025; 87502; 93005; 93306; 99284; A9270-GY; G0378; J1650

== ENCOUNTER 2017-09-04 14:34 | Emergency (ER) | payer OTHER, BC ==
--- NOTE | 2017-09-04 15:58 | RAD ---
INDICATION: Pain and swelling. COMPARISON: None TECHNIQUE: Duplex interrogation of the Lowerextremity was performed. FINDINGS: Deep veins: The common femoral, great saphenous, profunda femoris, proximal, mid, and distal deep femoral, popliteal, posterior tibial, and peroneal veins are patent. There is normal compressibility, augmentation, and phasic flow. Superficial veins: There are no findings of superficial thrombophlebitis. Popliteal fossa:There is no evidence of a popliteal cyst. Soft tissues:There are no soft tissue abnormalities. IMPRESSION: Normal examination. No evidence of deep venous thrombosis
--- NOTE | 2017-09-04 17:17 | RAD ---
INDICATION: Left thumb injury COMPARISON: None TECHNIQUE: Transverse and longitudinal scans of the left lateral thigh were performed utilizing grayscale and color Doppler imaging. FINDINGS: At the site of the wound is a complex fluid collection immediately beneath the skin surface. This measures approximately 3.4 x 2.0 x 1.0 cm. There is no intrinsic vascularity. IMPRESSION: THERE IS A LOCALIZED FLUID COLLECTION AT THE SITE OF THE ENTRANCE WOUND. ULTRASONOGRAPHY CANNOT DETERMINE IF THIS IS A INFECTED COLLECTION.
--- NOTE | 2017-09-04 19:18 | ED ---
Chris Thompson Tenzin, scribed for Davidson Wolfe MD on 09/04/17 at 1630 . Lower Extremity - HPI Summary HPI Summary: Pt is a 67 years old M presenting to the ED with the c/o injury on left thigh and ankle from a fall that occurred one week and two days ago. Pt has a healing wound on his left thigh. Pt denies having any fever. Pt was referred by his PCP to visit ED today. He is on doxycycline. He was in the ED for c/o A-fib a few months ago. - History of Current Complaint Chief Complaint: EDExtremityLower Stated Complaint: LT ANKLE SWELLING Time Seen by Provider: 09/04/17 16:21 Hx Obtained From: Patient Mechanism Of Injury: Fall From Height Of: - head first down a hill. Onset of Pain: Days - The incident occurred one week and 2 days ago. Onset/Duration: Still Present Severity Initially: Mild Severity Currently: Mild Pain Intensity: 0 Pain Scale Used: 0-10 Numeric Timing: Lasting Days - a week and two days ago. Associated Signs And Symptoms: Positive: Swelling, Redness, Bruising. Negative : Fever, Dizziness, Syncope - Allergies/Home Medications Allergies/Adverse Reactions: Allergies Allergy/AdvReac Type Severity Reaction Status Date / Time clavulanic acid Allergy Severe See Comment Verified 09/04/17 14:49 [From Augmentin] amoxicillin [From Augmentin] Allergy See Comment Verified 09/04/17 14:48 PMH/Surg Hx/FS Hx/Imm Hx Endocrine/Hematology History: Denies: Hx Diabetes, Hx Thyroid Disease, Other Endocrine/Hematological Disorders Cardiovascular History: Reports: Other Cardiovascular Problems/Disorders - pt is a runner. low heart rate noted today Denies: Hx Congestive Heart Failure, Hx Hypertension, Hx Pacemaker/ICD Respiratory History: Denies: Hx Asthma, Hx Chronic Obstructive Pulmonary Disease (COPD) GI History: Denies: Hx Ulcer History: Reports: Hx Benign Prostatic Hyperplasia Denies: Hx Dialysis, Hx Renal Disease Musculoskeletal History: Denies: Hx Rheumatoid Arthritis, Hx Osteoporosis Sensory History: Reports: Hx Contacts or Glasses Denies: Hx Hearing Aid Opthamlomology History: Reports: Hx Contacts or Glasses Psychiatric History: Denies: Hx Panic Disorder - Surgical History Surgery Procedure, Year, and Place: tonsillectomy Infectious Disease History: No Infectious Disease History: Denies: Hx Clostridium Difficile, Hx Hepatitis, Hx Human Immunodeficiency Virus (HIV), Hx of Known/Suspected MRSA, Hx Shingles, Hx Tuberculosis, Hx Known/ Suspected VRE, Hx Known/Suspected VRSA, History Other Infectious Disease, Traveled Outside the [place] in Last 30 Days - Family History Known Family History: Positive: Cardiac Disease - Mother: fatal [place] Family History: Father: BPH and dementia. - Social History Alcohol Use: None Substance Use Type: Reports: None Smoking Status (MU): Never Smoked Tobacco Have You Smoked in the Last Year: No Review of Systems Negative: Fever Positive: Bruising - Left thigh and foot. , Other - Injury from the fall on left thigh and foot. All Other Systems Reviewed And Are Negative: Yes Physical Exam - Summary Physical Exam Summary: General: well-appearing, no pain distress Skin: warm, color reflects adequate perfusion, dry Head: normal Eyes: EOMI, MABEL ENT: normal Neck: supple, nontender Respiratory: CTA, breath sounds present Cardiovascular: RRR Abdomen: soft, nontender Bowel: present Musculoskeletal: He has swelling to the left foot that is dependent. There are good pulses and good sensation. He has a scab that measures 2 cm in diameter on the medial aspect of the left leg, and there is not any erythema or drainage there. On the lateral aspect of the left thigh, there is a 2.5 cm diameter wound with granulation tissue. There is raised erythema surrounding this wound. Neurological: sensory/motor intact, A&O x3 Psychological: affect/mood appropriate Triage Information Reviewed: Yes Vital Signs On Initial Exam: Initial Vitals Temp Pulse Resp BP Pulse Ox 98.4 F 57 16 124/74 98 09/04/17 14:37 09/04/17 14:37 09/04/17 14:37 09/04/17 14:37 09/04/17 14:37 Vital Signs Reviewed: Yes Diagnostics - Vital Signs Vital Signs Temp Pulse Resp BP Pulse Ox 09/04/17 14:37 98.4 F 57 16 124/74 98 - Laboratory Lab Statement: Any lab studies that have been ordered have been reviewed, and results considered in the medical decision making process. - Ultrasound No standard instances Ultrasound Interpretation: Positive (See Comments) Ultrasound Interpretation Completed By: Radiologist - US soft tissue limited Ext -LT Impression: There is a localized fluid collection at the site of the entrance wound. Ultrasonography cannot determine if this is a infected collection. Dr. Wolfe reviewed the report. - Additional Comments Diagnostic Additional Comments: VL Lower Ext Veins Left: Interpreted by Radiologist. Impression: Normal examination. No evidence of deep venous thrombosis. Dr. Wolfe reviewed the report. Lower Extremity Course/Dx - Course Course Of Treatment: US NEGATIVE FOR DVT. THERE IS A FLUID COLLECTION AT THE WOUND. I ATTEMPED TO DRAIN THE AREA OF FLUCTUANCE. I BELIEVE IT IS A HEMATOMA. NO PUS WAS EXPRESSED. THE PLAN IS TO CONTINUE THE DOXYCYCLINE AND ALLOW THE WOUND TO HEAL BY PRIMARY INTENTION. WE DISCUSSED FOLLOW UP WITH THE LOCAL SURGEONS/WOUND CLINIC; [facility]; RETURN IF WORSE. - Diagnoses Provider Diagnoses: Laceration of left leg, Leg edema, left Discharge - Sign-Out/Discharge Documenting (check all that apply): Discharge/Admit/Transfer - Discharge Plan Condition: Stable Disposition: HOME Prescriptions: DOXYcycline CAP(*) [DOXYcycline 100MG CAP(*)] 100 mg PO BID #20 cap Patient Education Materials: Laceration (ED), Leg Edema (ED) Referrals: Bran Roper MD [Primary Care Provider] - Additional Instructions: FOLLOW UP WITH YOUR [facility] DOCTOR. I DID NOT FIND PUS IN YOUR WOUND TODAY. THERE WAS NO DEEP VENOUS THROMBOSIS FOUND IN YOUR LEG TODAY. ASK HIM TO PRESCRIBE DOXYCYCLINE 100MG TWICE A DAY. RETURN TO THE EMERGENCY DEPARTMENT FOR ANY WORSENING OF YOUR CONDITION; SIGNS OF INFECTION, YOU FEEL ILL OR QUESTIONS OR CONCERNS. - Billing Disposition and Condition Condition: STABLE Disposition: HOME The documentation as recorded by the Chris nava Tenzin accurately reflects the service I personally performed and the decisions made by me, Davidson Wolfe MD.
[2017-09-04 19:34] VITALS: BP 144/88
== END 2017-09-04 19:33 | disposition home or self-care (01) ==
LOC: ED 14:34
DX: S81.812A Laceration without foreign body, left lower leg, initial encounter (principal); W19.XXXA Unspecified fall, initial encounter; Y92.9 Unspecified place or not applicable; R60.0 Localized edema
CPT/HCPCS: 99282

== ENCOUNTER 2017-11-06 16:59 | Observation (INO) | payer BC, MEDICARE, OTHER ==
[2017-11-06 18:25] LABS: ABS Basophils 0 10^3/ul (0-0.2); ABS Eosinophils 0.3 10^3/ul (0-0.6); ABS Lymphocytes 1.4 10^3/ul (1.0-4.8); ABS Monocytes 0.5 10^3/ul (0-0.8); ABS Neutrophils 2.5 10^3/ul (1.5-7.7); ABS Nucleated RBC 0 10^3/ul; Eosinophil % 5.4 % (0-6); Hematocrit 44 % (42-52); Hemoglobin 15.4 g/dl (14.0-18.0); Lymphocyte % 28.9 % (25-47); Mean Corpuscular HGB Conc 35 g/dl (31-36); Mean Corpuscular Hemoglobin 31 pg (27-31); Mean Corpuscular Volume 89 fL (80-94); Mean Platelet Volume 8.5 um3 (7.4-10.4); Nucleated Red Blood Cells % 0.1; Platelet Count 193 10^3/ul (150-450); Red Blood Count 4.95 10^6/ul (4.00-5.40); Red Cell Distribution Width 13 % (10.5-15); White Blood Count 4.7 10^3/ul (3.5-10.8)
--- NOTE | 2017-11-06 18:43 | RAD ---
INDICATION: Chest pain COMPARISON: Chest x-ray May 24, 2017 TECHNIQUE: An AP portable view obtained at 1835 hours is submitted. FINDINGS: Bones/Soft Tissues: There are no acute bony findings. Cardiomediastinal: The cardiomediastinal silhouette is unchanged. There is elongation of the aorta. The heart is mildly prominent. Lungs: There are no infiltrates. Pleura: There are no pleural effusions. Other: None IMPRESSION: NO ACTIVE DISEASE.
[2017-11-06 19:05] LABS: EGFR Non-African American 80.6 (>60)
--- NOTE | 2017-11-06 19:53 | ED ---
HPI Cardiac - History of Current Complaint Chief Complaint: EDDysrhythmPalp Stated Complaint: HIGH HEART RATE Time Seen by Provider: 11/06/17 17:32 Pain Intensity: 0 - Additional Pertinent History Primary Care Physician: [id number] - Allergy/Home Medications Allergies/Adverse Reactions: Allergies Allergy/AdvReac Type Severity Reaction Status Date / Time clavulanic acid Allergy Severe See Comment Verified 09/04/17 14:49 [From Augmentin] amoxicillin [From Augmentin] Allergy See Comment Verified 09/04/17 14:48 PMH/Surg Hx/FS Hx/Imm Hx Endocrine/Hematology History: Denies: Hx Diabetes, Hx Thyroid Disease, Other Endocrine/Hematological Disorders Cardiovascular History: Reports: Other Cardiovascular Problems/Disorders - pt is a runner. low heart rate noted today Denies: Hx Congestive Heart Failure, Hx Hypertension, Hx Pacemaker/ICD Respiratory History: Denies: Hx Asthma, Hx Chronic Obstructive Pulmonary Disease (COPD) GI History: Denies: Hx Ulcer History: Reports: Hx Benign Prostatic Hyperplasia Denies: Hx Dialysis, Hx Renal Disease Musculoskeletal History: Denies: Hx Rheumatoid Arthritis, Hx Osteoporosis Sensory History: Reports: Hx Contacts or Glasses Denies: Hx Hearing Aid Opthamlomology History: Reports: Hx Contacts or Glasses Psychiatric History: Denies: Hx Panic Disorder - Surgical History Surgery Procedure, Year, and Place: tonsillectomy Infectious Disease History: No Infectious Disease History: Denies: Hx Clostridium Difficile, Hx Hepatitis, Hx Human Immunodeficiency Virus (HIV), Hx of Known/Suspected MRSA, Hx Shingles, Hx Tuberculosis, Hx Known/ Suspected VRE, Hx Known/Suspected VRSA, History Other Infectious Disease, Traveled Outside the [place] in Last 30 Days - Family History Known Family History: Positive: Cardiac Disease - Mother: fatal [place] Family History: Father: BPH and dementia. - Social History Alcohol Use: None Substance Use Type: Reports: None Smoking Status (MU): Never Smoked Tobacco Have You Smoked in the Last Year: No Physical Exam Vital Signs On Initial Exam: Initial Vitals Temp Pulse Resp BP Pulse Ox 98.4 F 47 16 148/88 97 11/06/17 17:08 11/06/17 17:08 11/06/17 17:08 11/06/17 17:08 11/06/17 17:08 Diagnostics - Vital Signs Vital Signs Temp Pulse Resp BP Pulse Ox 11/06/17 17:08 98.4 F 47 16 148/88 97 - Laboratory Lab Results: Lab Results 11/06/17 11/06/17 11/06/17 Range/Units 18:14 18:14 18:14 WBC 4.7 (3.5-10.8) 10^3/ul RBC 4.95 (4.00-5.40) 10^6/ul Hgb 15.4 (14.0-18.0) g/dl Hct 44 (42-52) % MCV 89 (80-94) fL MCH 31 (27-31) pg MCHC 35 (31-36) g/dl RDW 13 (10.5-15) % Plt Count 193 (150-450) 10^3/ul MPV 8.5 (7.4-10.4) um3 Neut % (Auto) 53.5 (38-83) % Lymph % (Auto) 28.9 (25-47) % Willacy % (Auto) 11.3 H (0-7) % Eos % (Auto) 5.4 (0-6) % Baso % (Auto) 0.9 (0-2) % Absolute Neuts (auto) 2.5 (1.5-7.7) 10^3/ul Absolute Lymphs (auto) 1.4 (1.0-4.8) 10^3/ul Absolute Monos (auto) 0.5 (0-0.8) 10^3/ul Absolute Eos (auto) 0.3 (0-0.6) 10^3/ul Absolute Basos (auto) 0 (0-0.2) 10^3/ul Absolute Nucleated RBC 0 10^3/ul Nucleated RBC % 0.1 INR (Anticoag Therapy) 0.90 (0.77-1.02) APTT 31.8 (26.0-36.3) seconds D-Dimer, Quantitative < 200 (Less Than 230) ng/mL Sodium 139 (135-145) mmol/L Potassium 4.3 (3.5-5.0) mmol/L Chloride 103 (101-111) mmol/L Carbon Dioxide 28 (22-32) mmol/L Anion Gap 8 (2-11) mmol/L BUN 13 (6-24) mg/dL Creatinine 0.93 (0.67-1.17) mg/dL Est GFR ( Amer) 97.5 (>60) Est GFR (Non-Af Amer) 80.6 (>60) BUN/Creatinine Ratio 14.0 (8-20) Glucose 100 (70-100) mg/dL Lactic Acid (0.5-2.0) mmol/L Calcium 9.2 (8.6-10.3) mg/dL Magnesium 1.9 (1.9-2.7) mg/dL Total Bilirubin 0.80 (0.2-1.0) mg/dL AST 24 (13-39) U/L ALT 16 (7-52) U/L Alkaline Phosphatase 77 (34-104) U/L Total Creatine Kinase 59 (10-223) U/L CK-MB (CK-2) 2.9 (0.6-6.3) ng/mL Troponin I 0.04 H* (<0.04) ng/mL B-Natriuretic Peptide ( - 100) pg/mL Total Protein 6.5 (6.4-8.9) g/dL Albumin 4.1 (3.2-5.2) g/dL Globulin 2.4 (2-4) g/dL Albumin/Globulin Ratio 1.7 (1-3) TSH 6.44 H (0.34-5.60) mcIU/mL Thyroxine (T4) 9.12 (6.09-12.23) mcg/mL 11/06/17/ Range/Units 18:14 18:14 WBC (3.5-10.8) 10^3/ul RBC (4.00-5.40) 10^6/ul Hgb (14.0-18.0) g/dl Hct (42-52) % MCV (80-94) fL MCH (27-31) pg MCHC (31-36) g/dl RDW (10.5-15) % Plt Count (150-450) 10^3/ul MPV (7.4-10.4) um3 Neut % (Auto) (38-83) % Lymph % (Auto) (25-47) % Willacy % (Auto) (0-7) % Eos % (Auto) (0-6) % Baso % (Auto) (0-2) % Absolute Neuts (auto) (1.5-7.7) 10^3/ul Absolute Lymphs (auto) (1.0-4.8) 10^3/ul Absolute Monos (auto) (0-0.8) 10^3/ul Absolute Eos (auto) (0-0.6) 10^3/ul Absolute Basos (auto) (0-0.2) 10^3/ul Absolute Nucleated RBC 10^3/ul Nucleated RBC % INR (Anticoag Therapy) (0.77-1.02) APTT (26.0-36.3) seconds D-Dimer, Quantitative (Less Than 230) ng/mL Sodium (135-145) mmol/L Potassium (3.5-5.0) mmol/L Chloride (101-111) mmol/L Carbon Dioxide (22-32) mmol/L Anion Gap (2-11) mmol/L BUN (6-24) mg/dL Creatinine (0.67-1.17) mg/dL Est GFR ( Amer) (>60) Est GFR (Non-Af Amer) (>60) BUN/Creatinine Ratio (8-20) Glucose (70-100) mg/dL Lactic Acid 1.1 (0.5-2.0) mmol/L Calcium (8.6-10.3) mg/dL Magnesium (1.9-2.7) mg/dL Total Bilirubin (0.2-1.0) mg/dL AST (13-39) U/L ALT (7-52) U/L Alkaline Phosphatase (34-104) U/L Total Creatine Kinase (10-223) U/L CK-MB (CK-2) (0.6-6.3) ng/mL Troponin I (<0.04) ng/mL B-Natriuretic Peptide 52 ( - 100) pg/mL Total Protein (6.4-8.9) g/dL Albumin (3.2-5.2) g/dL Globulin (2-4) g/dL Albumin/Globulin Ratio (1-3) TSH (0.34-5.60) mcIU/mL Thyroxine (T4) (6.09-12.23) mcg/mL Result Diagrams: 11/06/17 18:14 11/06/17 18:14 Lab Statement: Any lab studies that have been ordered have been reviewed, and results considered in the medical decision making process. - EKG 1815 Cardiac Rate: Bradycardia - 58 BPM EKG Rhythm: Sinus Rhythm ST Segment: Non-Specific Ectopy: None EKG Interpretation: nml AV/IV CT, nml QTc, and nml axis EKG Comparison: No Significant Change - 05/26/17 Discharge - Discharge Plan Referrals: Bran Roper MD [Primary Care Provider] -
--- NOTE | 2017-11-06 20:11 | ED ---
Palpitations / Dysrhythmia - HPI Summary HPI Summary: This patient is a 49 year old F presenting to ED with a chief complaint of palpitations/tachycardic and light-headedness since 2 days ago. The patient was walking along the [facility] when he felt these symptoms. He felt vertigo so he went into a nearby restaurant to have something to drink and eat, then felt better. He drove 5 hours back to [place] yesterday. The patient is on Finasteride and Flonax. Dr. Roper from the [facility] reports that his stress test was negative and his echo was done on 02/10/17. Dr. Recio said that he is not on Coumadin because his SIVAKUMAR score was low. The patient rates the pain 0/ 10 in severity currently. Symptoms aggravated by nothing. Symptoms alleviated by nothing. Patient denies bilateral leg pain, CP, SOB, RAMON, and dizziness currently. The patient was seen 05/25/17 for episodes of syncope. Current vitals include 47 BPM, 97 O2 sat, and BP 148/88. Home Medications Medication Instructions Recorded Confirmed Type Tamsulosin CAP* [Flomax CAP*] 0.4 mg PO DAILY 11/25/13 09/04/17 History Finasteride TAB* [Proscar TAB*] 5 mg PO DAILY 05/24/17 09/04/17 History Aspirin EC TAB* [Ecotrin EC Low 81 mg PO DAILY #30 tab.ec 05/26/17 09/04/17 Rx Dose 81 MG*] DOXYcycline CAP(*) [DOXYcycline 100 mg PO BID #20 cap 09/04/17 Rx 100MG CAP(*)] - History of Current Complaint Chief Complaint: EDDysrhythmPalp Time Seen by Provider: 11/06/17 17:32 Hx Obtained From: Patient Onset/Duration: Sudden Onset, Lasting Hours - felt better after eating and drinking at a restaurant, Resolved Severity Currently: None Character: Fast Aggravating: Nothing Alleviating: Nothing Associated Signs & Symptoms: Lightheadedness - palpitations/tachycardic and light-headedness/vertigo; Patient denies bilateral leg pain, CP, SOB, RAMON, and dizziness currently. - Allergy/Home Medications Allergies/Adverse Reactions: Allergies Allergy/AdvReac Type Severity Reaction Status Date / Time clavulanic acid Allergy Severe See Comment Verified 09/04/17 14:49 [From Augmentin] amoxicillin [From Augmentin] Allergy See Comment Verified 09/04/17 14:48 PMH/Surg Hx/FS Hx/Imm Hx Endocrine/Hematology History: Denies: Hx Diabetes, Hx Thyroid Disease, Other Endocrine/Hematological Disorders Cardiovascular History: Reports: Other Cardiovascular Problems/Disorders - pt is a runner. low heart rate noted today Denies: Hx Congestive Heart Failure, Hx Hypertension, Hx Pacemaker/ICD Respiratory History: Denies: Hx Asthma, Hx Chronic Obstructive Pulmonary Disease (COPD) GI History: Denies: Hx Ulcer History: Reports: Hx Benign Prostatic Hyperplasia Denies: Hx Dialysis, Hx Renal Disease Musculoskeletal History: Denies: Hx Rheumatoid Arthritis, Hx Osteoporosis Sensory History: Reports: Hx Contacts or Glasses Opthamlomology History: Reports: Hx Contacts or Glasses Psychiatric History: Denies: Hx Panic Disorder - Surgical History Surgery Procedure, Year, and Place: tonsillectomy Infectious Disease History: No Infectious Disease History: Denies: Hx Clostridium Difficile, Hx Hepatitis, Hx Human Immunodeficiency Virus (HIV), Hx of Known/Suspected MRSA, Hx Shingles, Hx Tuberculosis, Hx Known/ Suspected VRE, Hx Known/Suspected VRSA, History Other Infectious Disease, Traveled Outside the [place] in Last 30 Days - Family History Known Family History: Positive: Cardiac Disease - Mother: fatal SC Family History: Father: BPH and dementia. - Social History Alcohol Use: None Substance Use Type: Reports: None Smoking Status (MU): Never Smoked Tobacco Have You Smoked in the Last Year: No Review of Systems Positive: Palpitations - tachycardic. Negative: Chest Pain Negative: Shortness Of Breath Positive: Other - denies bilateral leg pain Neurological: Other - light-headedness/vertigo 2 days ago; none currently Negative: Headache All Other Systems Reviewed And Are Negative: Yes Physical Exam - Summary Physical Exam Summary: Appearance: Well-appearing, moderate pain distress, well-nourished Skin: Warm, color reflects adequate perfusion, dry Head: Normal Head/Face inspection, atraumatic Eyes: Conjunctiva clear ENT: Normal inspection Neck: Supple, no nodes, no JVD Respiratory: Lungs clear, normal breath sounds, no respiratory distress Cardio: RRR, No murmur, pulses normal, brisk capillary refill Abdomen: Soft, nontender Bowel sounds: Present Musculoskeletal: Strength Intact/ROM intact, no calf tenderness, no edema. Psychological: Normal Neuro: Alert, muscle tone normal, no focal deficit Triage Information Reviewed: Yes Vital Signs On Initial Exam: Initial Vitals Temp Pulse Resp BP Pulse Ox 98.4 F 47 16 148/88 97 11/06/17 17:08 11/06/17 17:08 11/06/17 17:08 11/06/17 17:08 11/06/17 17:08 Vital Signs Reviewed: Yes Diagnostics - Vital Signs Vital Signs Temp Pulse Resp BP Pulse Ox 11/06/17 17:08 98.4 F 47 16 148/88 97 - Laboratory Lab Results: Lab Results 11/06/17 11/06/17 11/06/17 Range/Units 18:14 18:14 18:14 WBC 4.7 (3.5-10.8) 10^3/ul RBC 4.95 (4.00-5.40) 10^6/ul Hgb 15.4 (14.0-18.0) g/dl Hct 44 (42-52) % MCV 89 (80-94) fL MCH 31 (27-31) pg MCHC 35 (31-36) g/dl RDW 13 (10.5-15) % Plt Count 193 (150-450) 10^3/ul MPV 8.5 (7.4-10.4) um3 Neut % (Auto) 53.5 (38-83) % Lymph % (Auto) 28.9 (25-47) % Sutton % (Auto) 11.3 H (0-7) % Eos % (Auto) 5.4 (0-6) % Baso % (Auto) 0.9 (0-2) % Absolute Neuts (auto) 2.5 (1.5-7.7) 10^3/ul Absolute Lymphs (auto) 1.4 (1.0-4.8) 10^3/ul Absolute Monos (auto) 0.5 (0-0.8) 10^3/ul Absolute Eos (auto) 0.3 (0-0.6) 10^3/ul Absolute Basos (auto) 0 (0-0.2) 10^3/ul Absolute Nucleated RBC 0 10^3/ul Nucleated RBC % 0.1 INR (Anticoag Therapy) 0.90 (0.77-1.02) APTT 31.8 (26.0-36.3) seconds D-Dimer, Quantitative < 200 (Less Than 230) ng/mL Sodium 139 (135-145) mmol/L Potassium 4.3 (3.5-5.0) mmol/L Chloride 103 (101-111) mmol/L Carbon Dioxide 28 (22-32) mmol/L Anion Gap 8 (2-11) mmol/L BUN 13 (6-24) mg/dL Creatinine 0.93 (0.67-1.17) mg/dL Est GFR ( Amer) 97.5 (>60) Est GFR (Non-Af Amer) 80.6 (>60) BUN/Creatinine Ratio 14.0 (8-20) Glucose 100 (70-100) mg/dL Lactic Acid (0.5-2.0) mmol/L Calcium 9.2 (8.6-10.3) mg/dL Magnesium 1.9 (1.9-2.7) mg/dL Total Bilirubin 0.80 (0.2-1.0) mg/dL AST 24 (13-39) U/L ALT 16 (7-52) U/L Alkaline Phosphatase 77 (34-104) U/L Total Creatine Kinase 59 (10-223) U/L CK-MB (CK-2) 2.9 (0.6-6.3) ng/mL Troponin I 0.04 H* (<0.04) ng/mL B-Natriuretic Peptide ( - 100) pg/mL Total Protein 6.5 (6.4-8.9) g/dL Albumin 4.1 (3.2-5.2) g/dL Globulin 2.4 (2-4) g/dL Albumin/Globulin Ratio 1.7 (1-3) TSH 6.44 H (0.34-5.60) mcIU/mL Thyroxine (T4) 9.12 (6.09-12.23) mcg/mL 11/06/17 11/06/17 Range/Units 18:14 18:14 WBC (3.5-10.8) 10^3/ul RBC (4.00-5.40) 10^6/ul Hgb (14.0-18.0) g/dl Hct (42-52) % MCV (80-94) fL MCH (27-31) pg MCHC (31-36) g/dl RDW (10.5-15) % Plt Count (150-450) 10^3/ul MPV (7.4-10.4) um3 Neut % (Auto) (38-83) % Lymph % (Auto) (25-47) % Sutton % (Auto) (0-7) % Eos % (Auto) (0-6) % Baso % (Auto) (0-2) % Absolute Neuts (auto) (1.5-7.7) 10^3/ul Absolute Lymphs (auto) (1.0-4.8) 10^3/ul Absolute Monos (auto) (0-0.8) 10^3/ul Absolute Eos (auto) (0-0.6) 10^3/ul Absolute Basos (auto) (0-0.2) 10^3/ul Absolute Nucleated RBC 10^3/ul Nucleated RBC % INR (Anticoag Therapy) (0.77-1.02) APTT (26.0-36.3) seconds D-Dimer, Quantitative (Less Than 230) ng/mL Sodium (135-145) mmol/L Potassium (3.5-5.0) mmol/L Chloride (101-111) mmol/L Carbon Dioxide (22-32) mmol/L Anion Gap (2-11) mmol/L BUN (6-24) mg/dL Creatinine (0.67-1.17) mg/dL Est GFR ( Amer) (>60) Est GFR (Non-Af Amer) (>60) BUN/Creatinine Ratio (8-20) Glucose (70-100) mg/dL Lactic Acid 1.1 (0.5-2.0) mmol/L Calcium (8.6-10.3) mg/dL Magnesium (1.9-2.7) mg/dL Total Bilirubin (0.2-1.0) mg/dL AST (13-39) U/L ALT (7-52) U/L Alkaline Phosphatase (34-104) U/L Total Creatine Kinase (10-223) U/L CK-MB (CK-2) (0.6-6.3) ng/mL Troponin I (<0.04) ng/mL B-Natriuretic Peptide 52 ( - 100) pg/mL Total Protein (6.4-8.9) g/dL Albumin (3.2-5.2) g/dL Globulin (2-4) g/dL Albumin/Globulin Ratio (1-3) TSH (0.34-5.60) mcIU/mL Thyroxine (T4) (6.09-12.23) mcg/mL Result Diagrams: 11/06/17 18:14 11/06/17 18:14 Lab Statement: Any lab studies that have been ordered have been reviewed, and results considered in the medical decision making process. - Radiology CXR Radiology Interpretation Completed By: Radiologist - NO ACTIVE DISEASE. ED physician has reviewed this radiology report. - EKG 1815 Cardiac Rate: Bradycardia - 58 BPM EKG Rhythm: Sinus Rhythm ST Segment: Non-Specific Ectopy: None EKG Interpretation: nml AV/IV CT, nml QTc, and nml axis, no STEMI Course/Dx - Course Assessment/Plan: CXR reveals NO ACTIVE DISEASE. Consulted Dr. Gaviria at 2014 who accepts the patient for admission. Allergies noted. High blood pressure noted. Pt medications reviewed this visit. The patient will be admitted. The patient agrees with this plan. - Diagnoses Differential Diagnosis/HQI/PQRI: Positive: Other - elevated blood pressure without diagnosis of hypertension, vertigo, bradycardia, hx of paroxysmal atrial fibrillation, elevated troponin Provider Diagnoses: Elevated blood pressure reading without diagnosis of hypertension, Vertigo, Bradycardia, Hx of atrial fibrillation without current medication, Elevated troponin Discharge - Sign-Out/Discharge Documenting (check all that apply): Patient Departure - Discharge Plan Condition: Stable Disposition: ADMITTED TO [facility] Referrals: Bran Roper MD [Primary Care Provider] -
[2017-11-06] MEDS ORDERED: Al Hydrox/Mg Hydrox/Simet LIQ* 30 ML UDC PO PRN (20:43)
[2017-11-06] MEDS ORDERED: Ondansetron INJ* 2 MG/ML VIAL IV PRN (20:43)
[2017-11-06] MEDS ORDERED: Acetaminophen TAB* 325 MG PO PRN (20:43)
[2017-11-06] MEDS ORDERED: Aspirin EC TAB* 325 MG PO ONE (20:52)
[2017-11-06] MEDS: Heparin VIAL(*) 5000 UNITS/ML VIAL (FIVE THOUSAND) SUBCUT SCH (22:11)
--- NOTE | 2017-11-07 00:16 | HP ---
CC: Bran Roper MD, CT * HISTORY AND PHYSICAL: DATE OF ADMISSION: 11/06/17 TIME OF EVALUATION: 1999 PRIMARY CARE PROVIDER: Bran Roper MD, CT CHIEF COMPLAINT: Palpitations. HISTORY OF PRESENT ILLNESS: This is a 67-year-old male with a past medical history of paroxysmal atrial fibrillation, who presents to the emergency room with 3 days of palpitations. The patient is a very active individual, who runs 30 to 80 miles a week, who states 3 days ago he began having brief episodes where his heart rate would go as high as 140s with some lightheadedness. It had been in the few days, 3 days ago, few days 2 days ago and again this morning. He called his primary care physician at the [facility] and they said to call EMS and go to the emergency room. He did not have any associated shortness of breath. No chest pain. No dizziness. No syncope and his heart rate would come right back down to his resting heart rate, which is normally in the 40s. He was here back in May in the setting of syncope, where he was newly diagnosed with atrial fibrillation in the setting of influenza. He has not been on anticoagulation. He did see a smt machine operator at the [facility] few months ago, who started him on a baby aspirin and said he did not need followup for another year. He has had a stress test several years ago. When he was here in May , they discussed seeing an small products ii assembler in the setting of his bradycardia , but he never went to go see one. The patient's troponin was elevated and he was referred to the hospitalist service for further evaluation. He has denied any fevers. No URI illness. No weight changes. He did have some diarrhea. No nausea, vomiting. Otherwise, review of systems is negative. PAST MEDICAL HISTORY: 1. History of paroxysmal atrial fibrillation, not on anticoagulation. 2. BPH. 3. History of bradycardia. MEDICATIONS: 1. Tamsulosin 0.4 mg p.o. daily. 2. Proscar 5 mg p.o. daily. 3. Aspirin 81 mg p.o. daily. ALLERGIES: CLAVULANIC ACID, AMOXICILLIN. FAMILY HISTORY: Mother at age 84 from an VT. Father alive and healthy at age 93. 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 As mentioned, he is a very active runner. He runs 30 to 80 miles a week. He is planning to run a 50- mile race this Monday on the . No history of smoking, alcohol or illicit drug use. His healthcare proxy is his sister, Concepción. CODE STATUS: Full code. REVIEW OF SYSTEMS: A 14-point review of systems as mentioned in the HPI. Otherwise, negative. PHYSICAL EXAMINATION GENERAL: No acute distress. Resting comfortably. VITAL SIGNS: T-max 98.4, pulse rate 42, respiratory rate 19, oxygen saturation 97% on room air, and blood pressure 145/85. HEENT: Head, normocephalic. Pupils equal and reactive, anicteric. Oropharynx : Mucous membranes are moist. NECK: Supple, no lymphadenopathy. RESPIRATORY: Clear to auscultation. No wheezes, rhonchi or rales. CARDIAC: Bradycardia. No murmurs, rubs, or gallops. ABDOMEN: Soft, nontender, nondistended. EXTREMITIES: No clubbing, cyanosis or edema, +2 DPs. NEUROLOGIC: Alert and oriented x3. No gross focal neurologic deficits. LABORATORY DATA: White count 4.7, hemoglobin 15.4, hematocrit 44, platelets 193. INR was 0.9. D-dimer less than 200. Sodium 139, potassium 4.3, chloride 103, bicarb 20, BUN 13, creatinine 0.93. Glucose 100. Troponin 0.04, repeat is 0.05. BNP is 52, TSH is 6.44, T4 is 9.12. RADIOGRAPHIC DATA: Chest x-ray shows no active disease. EKG shows sinus bradycardia with PAC. ASSESSMENT: This is a 67-year-old male with a past medical history of paroxysmal atrial fibrillation, who presents to the emergency room with recurrent episodes of palpitations and tachycardia. Palpitations and tachycardia. Assessment: The patient with a mildly elevated troponin. No chest pain. I suspect his troponin is most likely due to his physical activity; however, in the setting of his recurrent, persistent tachycardia in the past few days, I wonder if this is not a paroxysmal atrial fibrillation, but more likely supraventricular tachycardia. He has no electrolyte derangements. He has no findings on his history to suggest the etiology behind this. Plan: We will admit him for observation, order a stress echo, continue to trend his troponin. Give him a full aspirin now. Continue on the baby aspirin. Check a lipid panel and consider event monitor as an outpatient if his supraventricular tachycardia is not captured during his hospitalization. CHRONIC MEDICAL PROBLEMS: 1. Benign prostatic hyperplasia: Continue his tamsulosin and his Proscar. 2. FEN: Placed him on a heart-healthy diet, n.p.o. After midnight. 3. DVT prophylaxis: The patient scores moderate risk. We will place him on heparin subcu t.i.d. 4. Code status: Full code. PATIENT TIME: Greater than 60 minutes were spent doing history and physical, more than half time spent in direct patient contact. [id number]/[facility] #: [id number] MARQUES
[2017-11-07] MEDS: Heparin VIAL(*) 5000 UNITS/ML VIAL (FIVE THOUSAND) SUBCUT SCH ×2 (05:27→16:29)
[2017-11-07 06:24] LABS: EGFR Non-African American 81.6 (>60)
[2017-11-07] MEDS ORDERED: Aspirin EC TAB* 81 MG TAB.EC PO SCH (09:00)
[2017-11-07] MEDS ORDERED: Tamsulosin CAP* 0.4 MG PO SCH (09:00)
[2017-11-07] MEDS ORDERED: Finasteride TAB* 5 MG PO SCH (09:00)
[2017-11-07 15:34] VITALS: BP 121/69
--- NOTE | 2017-11-08 14:54 | DS ---
CC: Dr. Bran Roper * DISCHARGE SUMMARY: DATE OF ADMISSION: 11/06/17 DATE OF DISCHARGE: 11/07/17 MY ATTENDING PHYSICIAN FOR TODAY: Dr. Josephine Carney.* (DICTATED BY SADIE PEARCE NP) CHIEF COMPLAINT: Palpitations. HOSPITAL COURSE: This is a 67-year-old male patient, who was hospitalized last April, 05/24/2017, with a complaint of palpitations as well. The patient was diagnosed with new-onset AFib at that time requiring stabilization of his heart rate. 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 The patient was seen by Cardiology at that time, discharged with Cardiology followup and followup with his primary care. The patient states that he went to see his medical staff services manager at the [facility] that he was referred to and the medical staff services manager at the [facility] reported that the patient was doing well, did not require rhythm or rate control, kept the patient on aspirin , and did not systemically anticoagulate until the patient's followup within a year; that was approximately 5 months ago. The patient presents now with similar symptoms, feeling of palpitations, and rapid heart rate over the past 24 hours. The patient came in to be evaluated again. He had a stress echo performed as he had a nuclear stress back in April, which was negative. He does have borderline making troponins, similar scenario to what he had in April; however, they were a little less at that time at 0.05 and 0.04. The patient had his stress echo, which was negative and low risk. The patient did not have any ectopy on telemetry. While he was here, we did not catch the palpitations, no AFib or SVT while hospitalized this time. The patient wishes to be discharged to home. We discussed extensively that he needs Cardiology followup again. I would prefer that the patient follows up locally if possible ; however, he prefers to continue with the [facility]. I highly recommend an outpatient event monitor to see if we can catch this arrhythmia or further underlying condition as well as a possible EP testing. Again, this patient's heart rate is low, in the mid 30s and 40s only, so if we were to place him on any type of beta artemio, this would further push his heart rate down, the patient would then ultimately require a pacemaker. We discussed these options again the last time the patient was here and I stressed with the patient at this time that he needs followup with his primary, who is Dr. Bran Roper at the [facility]. The patient does not remember the name of the medical staff services manager he saw, but he should see Dr. Roper within this next week. DISCHARGE DIAGNOSES: 1. Palpitations. 2. Paroxysmal atrial fibrillation. 3. Hypothyroidism. 4. History of BPH. DISCHARGE MEDICATIONS: Include: 1. Baby aspirin 81 mg daily. 2. Flomax 0.4 mg daily. 3. Proscar 5 mg daily. FOLLOWUP: Again, the patient was instructed to follow up with his primary care , Dr. Bran Roper, also with the medical staff services manager at the [facility]. If Dr. Roper is cc' d on this dictation, please also refer the patient on to Cardiology again for some outpatient testing. REVIEW OF SYSTEMS: On the date of discharge, the patient states that he has no fever, fatigue, or chills. No chest pain, no chest pain, no shortness of breath , no current palpitations, no abdominal pain, no nausea, no vomiting, no dizziness, no urinary complaints, and no further constitutional complaints. PHYSICAL EXAMINATION: Vital Signs: Today, blood pressure 121/69, heart rate 44 , respiratory rate 20, O2 saturation 97% on room air with a temperature of 97.7. HEENT: The patient is atraumatic and normocephalic. PERRLA with nonicteric sclerae. Oral mucosa is moist. Tongue is midline. Neck is supple and nontender. No JVD noted. No carotid bruits auscultated. Cardiovascular: S1 and S2 present. No murmurs, gallops, or rubs are noted. rhythm are regular, bradycardic. Lungs are clear bilaterally to auscultation with no wheezing, rhonchi, or rales. Abdomen is soft, nontender, and nondistended. Positive bowel sounds in all 4 quadrants. : Deferred. Musculoskeletal: There is no clubbing, no cyanosis, and no edema. There are positive pedal pulses. He has a steady gait and full range of motion. Neurologic: He is grossly intact and no focal deficits. Psychiatrically, he is cooperative and appropriate. LABORATORY DATA: WBC is 4.7, RBC is 4.95, hemoglobin 15.4, hematocrit 44, platelets 193. Sodium 139, potassium 3.7, chloride 107, CO2 of 26, BUN 12, creatinine 0.92, GFR 81.6, glucose 90, calcium 8.7, magnesium 1.9. Troponins 0.04, 0.05, and 0.05. BNP is 52. Triglycerides 97, cholesterol 170, LDL was 93 , HDL was 57.2. T4 is 9.12, TSH is 6.44. Please note that the TSH is elevated from April when his TSH was 1.69. DISCHARGE INSTRUCTIONS: Again, the patient was instructed to follow up with primary care staying on his aspirin, we will not add any new medications. His TSH should be rechecked as an outpatient as well to determine if the patient is a candidate for starting Synthroid as an outpatient. Again, the patient is not currently exhibiting any symptoms of hypothyroidism; however, this is something that should be rechecked and monitored as an outpatient. SADIE PEARCE NP [id number]/[facility] #: [id number] MARQUES
== END 2017-11-07 18:25 | disposition home or self-care (01) ==
LOC: ED 16:59 → MEDTELE 20:43
PROVIDERS: ADMIT Pediatrics; ATTEND Pediatrics
DX: R00.2 Palpitations (principal); I48.0 Paroxysmal atrial fibrillation; R42 Dizziness and giddiness; R03.0 Elevated blood-pressure reading, without diagnosis of hypertension; R00.1 Bradycardia, unspecified; E03.9 Hypothyroidism, unspecified; Z87.438 Personal history of other diseases of male genital organs; Z79.82 Long term (current) use of aspirin
CPT/HCPCS: 36415; 71045; 80048; 80053; 80061; 82550; 82553; 83605; 83735; 83880; 84436; 84443; 84484; 85025; 85379; 85610; 85730; 93005; 93017; 99283; A9270-GY; G0378; J1644

== ENCOUNTER 2019-01-31 16:47 | Observation (INO) | payer BC, OTHER ==
[2019-01-31 17:15] LABS: ABS Basophils 0.1 10^3/ul (0-0.2); ABS Eosinophils 0.2 10^3/ul (0-0.6); ABS Lymphocytes 1.2 10^3/ul (1.0-4.8); ABS Monocytes 0.6 10^3/ul (0-0.8); ABS Neutrophils 2.9 10^3/ul (1.5-7.7); Eosinophil % 4.8 %; Hematocrit 43 % (42-52); Lymphocyte % 24.6 %; Mean Corpuscular HGB Conc 35 g/dL (31-36); Mean Corpuscular Hemoglobin 31 pg (27-31); Mean Corpuscular Volume 90 fL (80-94); Mean Platelet Volume 8.6 fL (7.4-10.4); Nucleated Red Blood Cells % 0.2; Platelet Count 193 10^3/uL (150-450); Red Blood Count 4.85 10^6 /uL (4.18-5.48); Red Cell Distribution Width 14 % (10-15)
[2019-01-31 17:22] LABS: Activated Partial Thrombo Time 33.9 seconds (26.0-38.0); INR 1.02 (0.82-1.09)
[2019-01-31 17:38] LABS: ALT 17 U/L (7-52); AST 24 U/L (13-39); Albumin 3.8 g/dL (3.2-5.2); Albumin/Globulin Ratio 1.7 (1-3); Alkaline Phosphatase 90 U/L (34-104); Anion Gap 6 mmol/L (2-11); BUN/Creatinine Ratio 20.9 (8-20); Blood Urea Nitrogen 19 mg/dL (6-24); CO2 Carbon Dioxide 26 mmol/L (22-32); Calcium 9.1 mg/dL (8.6-10.3); Chloride 106 mmol/L (101-111); Creatine Kinase 103 U/L (10-223); EGFR African American 99.4 (>60); EGFR Non-African American 82.1 (>60); Globulin 2.2 g/dL (2-4); Glucose 89 mg/dL (70-100); Potassium 4.1 mmol/L (3.5-5.0); Sodium 138 mmol/L (135-145)
[2019-01-31 17:44] LABS: CKMB ng/mL 5.1 ng/mL (0.6-6.3)
[2019-01-31 17:50] LABS: Troponin I 0.06 ng/mL (<0.04)
[2019-01-31 18:43] LABS: TSH (Thyroid Stimulating Horm) 2.12 mcIU/mL (0.34-5.60)
--- NOTE | 2019-01-31 19:08 | ED ---
HPI Cardiac - HPI Summary HPI Summary: Patient is a 69 y/o M presenting to [facility] with complaints of chest pain and HR in 20s. 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 He finished his run at 1530, 01/31/19 and while he was sitting down he had onset of chest pain. Chest pain was sharp and mid sternal. Pain lasted 30-60 seconds and did not radiate. He states that he checked his pulse using his watch during his chest pain episode and noted that his pulse was in 20s. Patient reports that he had a stress echo done in October 2017. 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 Patient states that he had GI bleed when he was on ASA, claiming that he had a "stomach filled with blood". In room, vitals are BP 131/80, o2 85, pulse is 45. Initial pulse of 96 recorded on triage is questionable. In the room, he is 45 on monitor and 45 BPM on EKG. On triage, pain is denied, nothing is noted to aggravate/alleviate Sx. Home medications and allergies are reviewed. Home Medications Cholecalciferol TAB* [Vitamin D TAB*] 1,000 unit PO DAILY 01/31/19 [History Confirmed 01/31/19] EPINEPHrine [Epipen 2-Jose Cruz] 0.3 mg IM ONCE PRN 01/31/19 [History Confirmed ] Ferrous Gluconate TAB* [Fergon TAB*] 325 mg PO DAILY 01/31/19 [History Confirmed 01/31/19] Gluc Gonzalez/Chondro Gonzalez A/Vit C/Mn [Glucosamine Chondroitin] 1 tab PO DAILY 01/31/19 [History Confirmed 01/31/19] Multivitamins/Minerals TAB* [Theragran/minerals TAB*] 1 tab PO DAILY 01/31/19 [ History Confirmed 01/31/19] Saw [place] Fruit [Saw [place]] 450 mg PO DAILY 01/31/19 [History Confirmed ] Vitamin B Complex CAP* [B Complex CAP*] 1 cap PO DAILY 01/31/19 [History Confirmed 01/31/19] Allergies Allergy/AdvReac Type Severity Reaction Status Date / Time clavulanic acid Allergy Severe See Comment Verified 01/31/19 16:57 [From Augmentin] amoxicillin [From Augmentin] Allergy See Comment Verified 01/31/19 16:57 - History of Current Complaint Chief Complaint: EDShortnessOfBreath Stated Complaint: HEART PER PT Time Seen by Provider: 01/31/19 18:01 Hx Obtained From: Patient Onset/Duration: Started Hours Ago, Resolved Time of Onset: 15:30 Timing: Intermittent, Lasting Seconds - 30-60 seconds Initial Severity: Mild - chest pain Current Severity: None Pain Intensity: 0 Pain Scale Used: 0-10 Numeric Chest Pain Location: Mid Sternal Chest Pain Radiates: No Character: Sharp/Stabbing, Slow - HR in the 20's Aggravating Factor(s): Nothing Alleviating Factor(s): Nothing Associated Signs and Symptoms: Positive: Chest Pain, Palpitations, Other: - bradycardia to 20's after a run, with chest pain - Additional Pertinent History Primary Care Physician: [id number] - Allergy/Home Medications Allergies/Adverse Reactions: Allergies Allergy/AdvReac Type Severity Reaction Status Date / Time clavulanic acid Allergy Severe See Comment Verified 01/31/19 16:57 [From Augmentin] amoxicillin [From Augmentin] Allergy See Comment Verified 01/31/19 16:57 Home Medications: Home Medications Cholecalciferol TAB* [Vitamin D TAB*] 1,000 unit PO DAILY 01/31/19 [History Confirmed 01/31/19] EPINEPHrine [Epipen 2-Jose Cruz] 0.3 mg IM ONCE PRN 01/31/19 [History Confirmed ] Ferrous Gluconate TAB* [Fergon TAB*] 325 mg PO DAILY 01/31/19 [History Confirmed 01/31/19] Gluc Gonzalez/Chondro Gonzalez A/Vit C/Mn [Glucosamine Chondroitin Tab] 1 tab PO DAILY 01/31 [History Confirmed 01/31/19] Multivitamins/Minerals TAB* [Theragran/minerals TAB*] 1 tab PO DAILY 01/31/19 [ History Confirmed 01/31/19] Saw [place] Fruit [Saw [place]] 450 mg PO DAILY 01/31/19 [History Confirmed ] Vitamin B Complex CAP* [B Complex CAP*] 1 cap PO DAILY 01/31/19 [History Confirmed 01/31/19] PMH/Surg Hx/FS Hx/Imm Hx Previously Healthy: No Endocrine/Hematology History: Denies: Hx Diabetes, Hx Thyroid Disease, Other Endocrine/Hematological Disorders Cardiovascular History: Reports: Hx Atrial Fibrillation - not on anticoagulation , Hx Syncope, Other Cardiovascular Problems/Disorders - pt is a runner. low heart rate noted today in 20's, hx bradycardia Denies: Hx Angina, Hx Congestive Heart Failure, Hx Coronary Artery Disease, Hx Hypercholesterolemia, Hx Hypertension, Hx Myocardial Infarction, Hx Pacemaker /ICD, Hx Valvular Heart Disease Respiratory History: Denies: Hx Asthma, Hx Chronic Obstructive Pulmonary Disease (COPD) GI History: Denies: Hx Ulcer History: Reports: Hx Benign Prostatic Hyperplasia Denies: Hx Dialysis, Hx Renal Disease Musculoskeletal History: Denies: Hx Rheumatoid Arthritis, Hx Osteoporosis Sensory History: Reports: Hx Contacts or Glasses, Hx Hearing Aid - does not wear , Hx Hearing Problem Opthamlomology History: Reports: Hx Contacts or Glasses Psychiatric History: Denies: Hx Panic Disorder - Surgical History Surgical History: Yes Surgery Procedure, Year, and Place: tonsillectomy Infectious Disease History: No Infectious Disease History: Denies: Hx Clostridium Difficile, Hx Hepatitis, Hx Human Immunodeficiency Virus (HIV), Hx of Known/Suspected MRSA, Hx Shingles, Hx Tuberculosis, Hx Known/ Suspected VRE, Hx Known/Suspected VRSA, History Other Infectious Disease, Traveled Outside the [place] in Last 30 Days - Family History Known Family History: Positive: Cardiac Disease - Mother: fatal [place] Family History: Father: BPH and dementia. - Social History Alcohol Use: None Substance Use Type: Reports: None Smoking Status (MU): Never Smoked Tobacco Have You Smoked in the Last Year: No Review of Systems Negative: Fever - on vitals, temp is 98.3 F Positive: Palpitations, Chest Pain Respiratory: Negative Gastrointestinal: Negative Positive: no symptoms reported Skin: Negative Neurological: Negative Psychological: Normal All Other Systems Reviewed And Are Negative: Yes Physical Exam - Summary Physical Exam Summary: Appearance: Well-appearing, no pain distress, well-nourished Skin: Warm, color reflects adequate perfusion, dry Head: Normal Head/Face inspection, atraumatic Eyes: Conjunctiva clear ENT: Normal inspection Neck: Supple, no nodes, no JVD Respiratory: Lungs clear, normal breath sounds, no respiratory distress Cardio: bradycardic with HR's in the 40's, No murmur, pulses normal, brisk capillary refill Abdomen: Soft, nontender Bowel sounds: Present Musculoskeletal: Strength Intact/ROM intact, no calf tenderness, no edema. Psychological: Normal Neuro: Alert, muscle tone normal, no focal deficit Triage Information Reviewed: Yes Vital Signs On Initial Exam: Initial Vitals Temp Pulse Resp BP Pulse Ox 98.3 F 96 16 143/102 96 01/31/19 16:52 01/31/19 16:52 01/31/19 16:52 01/31/19 16:52 01/31/19 16:52 Vital Signs Reviewed: Yes Procedures - Sedation Patient Received Moderate/Deep Sedation with Procedure: No Diagnostics - Vital Signs Vital Signs Temp Pulse Resp BP Pulse Ox 01/31/19 16:52 98.3 F 96 16 143/102 96 - Laboratory Lab Results: Lab Results 01/31/19 01/31/19 01/31/19 Range/Units 17:03 17:03 17:03 WBC 5.0 (3.5-10.8) 10^3/uL RBC 4.85 (4.18-5.48) 10^6 /uL Hgb 15.0 (14.0-18.0) g/dL Hct 43 (42-52) % MCV 90 (80-94) fL MCH 31 (27-31) pg MCHC 35 (31-36) g/dL RDW 14 (10-15) % Plt Count 193 (150-450) 10^3/uL MPV 8.6 (7.4-10.4) fL Neut % (Auto) 58.3 % Lymph % (Auto) 24.6 % [place] % (Auto) 11.2 % Eos % (Auto) 4.8 % Baso % (Auto) 1.1 % Absolute Neuts (auto) 2.9 (1.5-7.7) 10^3/ul Absolute Lymphs (auto) 1.2 (1.0-4.8) 10^3/ul Absolute Monos (auto) 0.6 (0-0.8) 10^3/ul Absolute Eos (auto) 0.2 (0-0.6) 10^3/ul Absolute Basos (auto) 0.1 (0-0.2) 10^3/ul Absolute Nucleated RBC 0.0 10^3/ul Nucleated RBC % 0.2 INR (Anticoag Therapy) 1.02 (0.82-1.09) APTT 33.9 (26.0-38.0) seconds Sodium 138 (135-145) mmol/L Potassium 4.1 (3.5-5.0) mmol/L Chloride 106 (101-111) mmol/L Carbon Dioxide 26 (22-32) mmol/L Anion Gap 6 (2-11) mmol/L BUN 19 (6-24) mg/dL Creatinine 0.91 (0.67-1.17) mg/dL Est GFR ( Amer) 99.4 (>60) Est GFR (Non-Af Amer) 82.1 (>60) BUN/Creatinine Ratio 20.9 H (8-20) Glucose 89 (70-100) mg/dL Lactic Acid (0.5-2.0) mmol/L Calcium 9.1 (8.6-10.3) mg/dL Total Bilirubin 1.10 H (0.2-1.0) mg/dL AST 24 (13-39) U/L ALT 17 (7-52) U/L Alkaline Phosphatase 90 (34-104) U/L Total Creatine Kinase 103 (10-223) U/L CK-MB (CK-2) 5.1 (0.6-6.3) ng/mL Myoglobin 45.0 (17.4-105.7) ng/mL Troponin I 0.06 H* (<0.04) ng/mL Total Protein 6.0 L (6.4-8.9) g/dL Albumin 3.8 (3.2-5.2) g/dL Globulin 2.2 (2-4) g/dL Albumin/Globulin Ratio 1.7 (1-3) TSH 2.12 (0.34-5.60) mcIU/mL 01/31/19 Range/Units 17:03 WBC (3.5-10.8) 10^3/uL RBC (4.18-5.48) 10^6 /uL Hgb (14.0-18.0) g/dL Hct (42-52) % MCV (80-94) fL MCH (27-31) pg MCHC (31-36) g/dL RDW (10-15) % Plt Count (150-450) 10^3/uL MPV (7.4-10.4) fL Neut % (Auto) % Lymph % (Auto) % [place] % (Auto) % Eos % (Auto) % Baso % (Auto) % Absolute Neuts (auto) (1.5-7.7) 10^3/ul Absolute Lymphs (auto) (1.0-4.8) 10^3/ul Absolute Monos (auto) (0-0.8) 10^3/ul Absolute Eos (auto) (0-0.6) 10^3/ul Absolute Basos (auto) (0-0.2) 10^3/ul Absolute Nucleated RBC 10^3/ul Nucleated RBC % INR (Anticoag Therapy) (0.82-1.09) APTT (26.0-38.0) seconds Sodium (135-145) mmol/L Potassium (3.5-5.0) mmol/L Chloride (101-111) mmol/L Carbon Dioxide (22-32) mmol/L Anion Gap (2-11) mmol/L BUN (6-24) mg/dL Creatinine (0.67-1.17) mg/dL Est GFR ( Amer) (>60) Est GFR (Non-Af Amer) (>60) BUN/Creatinine Ratio (8-20) Glucose (70-100) mg/dL Lactic Acid 0.7 (0.5-2.0) mmol/L Calcium (8.6-10.3) mg/dL Total Bilirubin (0.2-1.0) mg/dL AST (13-39) U/L ALT (7-52) U/L Alkaline Phosphatase (34-104) U/L Total Creatine Kinase (10-223) U/L CK-MB (CK-2) (0.6-6.3) ng/mL Myoglobin (17.4-105.7) ng/mL Troponin I (<0.04) ng/mL Total Protein (6.4-8.9) g/dL Albumin (3.2-5.2) g/dL Globulin (2-4) g/dL Albumin/Globulin Ratio (1-3) TSH (0.34-5.60) mcIU/mL Result Diagrams: 01/31/19 17:03 01/31/19 17:03 Lab Statement: Any lab studies that have been ordered have been reviewed, and results considered in the medical decision making process. - Radiology CXR Radiology Interpretation Completed By: Radiologist Summary of Radiographic Findings: IMPRESSION: No acute cardiopulmonary process by radiograph. THIS REPORT WAS REVIEWED BY DR. HOLMAN. - EKG 1656 Cardiac Rate: Bradycardia - rate of 45 BPM EKG Rhythm: Sinus Bradycardia ST Segment: Non-Specific Ectopy: PACs EKG Comparison: No Significant Change - compared to prior done 11/07/17 Summary of EKG Findings: EKG showed sinus bradycardia with rate of 45 BPM, nml AVIVCT, nml QTc, PAC ectopy noted, no acute changes, no change compared to prior EKG done 11/07/17. Dr. Holman has reviewed and interpreted this EKG. Re-Evaluation - Re-Evaluation First Eval Re-Evaluation Time: 18:00 Change: Unchanged Comment: Aware of trop of 0.06. Second Eval Re-Evaluation Time: 19:50 Change: Unchanged Comment: Pt resting comfortably. No CP, no dizziness, no SOB. States he does not want to be admitted. Will check second troponin. Third Eval Re-Evaluation Time: 21:00 Change: Unchanged Comment: Patient had reported that he is agreeable with admission. Disposition - Course Course Of Treatment: Patient is a 69 y/o M presenting to [facility] with complaints of chest pain and HR in 20s. 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 He finished his run at 1530, 01/31/19 and while he was sitting down he had onset of chest pain. Chest pain was sharp and mid sternal. Pain lasted 30-60 seconds and did not radiate. He states that he checked his pulse using his watch during his chest pain episode and noted that his pulse was in 20s. Patient reports that he had a stress echo done in October 2017. 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 Pt has hx paroxysmal atrial fibrillation, not on anticoagulation. CXR IMPRESSION: No acute cardiopulmonary process by radiograph. EKG showed sinus bradycardia with rate of 45 BPM, nml AVIVCT, nml QTc, PAC ectopy noted, no acute changes, no change compared to prior EKG done . Bloodwork was obtained. First and second trop was 0.06. Other abnormal values include BUN/creatinine ratio 20.9, total bilirubin 1.10, total protein 6. Patient's case was discussed with Dr. Donald, and Dr. Donald is agreeable to admit the patient. Patient initially refused admission but eventually became agreeable to stay. - Diagnoses Provider Diagnoses: Chest pain, Bradycardia - Physician Notifications Discussed Care Of Patient With: Arturo Donald Time Discussed With Above Provider: 19:42 Instructed by Provider To: Other - Patient's case was discussed with Dr. Donald, Dr. Donald is agreeable to admit the patient. Discharge ED - Sign-Out/Discharge Documenting (check all that apply): Patient Departure - admit All imaging exams completed and their final reports reviewed: Yes - Discharge Plan Condition: Stable Disposition: ADMITTED TO [facility] - Billing Disposition and Condition Condition: STABLE Disposition: Admitted to [facility] - Attestation Statements Document Initiated by Diamond: Yes Documenting Scribe: SANJAY SHRESTHA Provider For Whom Scribe is Documenting (Include Credential): RAMON HOLMAN MD Scribe Attestation: SANJAY Thompson scribed for RAMON HOLMAN MD on 02/19/19 at 1605. Scribe Documentation Reviewed: Yes Provider Attestation: The documentation as recorded by the SANJAY nvaa accurately reflects the service I personally performed and the decisions made by RAMON siddiqui MD Status of Scribe Document: Viewed
[2019-01-31 20:15] LABS: Urine Appearance Clear; Urine Bilirubin Negative (Negative); Urine Blood Negative (Negative); Urine Color Straw; Urine Glucose Negative (Negative); Urine Ketones Negative (Negative); Urine Nitrite Negative (Negative); Urine Protein Negative (Negative); Urine Specific Gravity 1.005 (1.010-1.030); Urine Urobilinogen Negative (Negative)
[2019-01-31 20:36] LABS: Troponin I 0.06 ng/mL (<0.04)
[2019-01-31] MEDS ORDERED: Ondansetron INJ* 2 MG/ML VIAL IV PRN (20:51)
[2019-01-31] MEDS ORDERED: Acetaminophen TAB* 325 MG PO PRN (20:51)
[2019-01-31] MEDS ORDERED: Enoxaparin(*) 40 MG/0.4 ML SYR SUBCUT SCH (21:00)
--- NOTE | 2019-01-31 22:41 | HP ---
ADMISSION HISTORY AND PHYSICAL: DATE OF ADMISSION: 01/31/19 PRIMARY CARE PROVIDER: Dr. Roper. PROVIDER: Yanna Wells NP. ATTENDING PHYSICIAN: Dr. Donald.* (DICTATED BY YANNA WELLS NP) CHIEF COMPLAINT: Chest pain. HISTORY OF PRESENT ILLNESS: This is a 69-year-old male with a past medical history significant for paroxysmal AFib, not on anticoagulation, and bradycardia , who presented to the emergency room after experiencing about 30 seconds to a minute worth of chest pain this afternoon. Pain began in the center of his chest without any radiation. No accompanying diaphoresis, chest pressure, chest tightness, nausea, or vomiting. At that time of the chest pain he noticed on his watch that his pulse had dropped to 29. He normally is bradycardic in the 40s to 50s. He said he has never seen it go that low. He ran 2 races this past week, a half marathon and then a 6K with plans to run a full marathon this upcoming weekend. Hospitalists were asked to evaluate the patient for admission. In the emergency room, the patient received an echocardiogram, which showed sinus bradycardia, otherwise normal. He had a chest x-ray and that showed no acute cardiopulmonary processes. 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 He has had 4 crushed vertebrae and 8 facial fractures to the right side. PAST SURGICAL HISTORY: No past surgical history. HOME MEDICATIONS: Include: 1. Tamsulosin 0.4 mg p.o. daily. 2. Finasteride 5 mg p.o. daily. ALLERGIES: To CLAVULANIC ACID and AMOXICILLIN. FAMILY HISTORY: Significant for mother from an [place] in 1983. Father recently , had dementia. SOCIAL HISTORY: Does not smoke, does not drink. Denies any recreational substance use. 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 REVIEW OF SYSTEMS: An 11-point system review was positive for sore throat, cough, and runny nose for the past 3 days as well as the brief episode of chest pain. Denies any current chest pain or shortness of breath. PHYSICAL EXAMINATION CONSTITUTIONAL: This is a fit, well-groomed, older gentleman, in no acute distress. VITAL SIGNS: Temperature 98.3 degrees Fahrenheit, 96 pulse, 16 respirations, 96 % oxygen on room air, blood pressure of 143/102. HEENT: Eyes: PERRLA. Extraocular muscles intact. Conjunctivae pink and moist. ENT: Oropharynx is clear. Mucous membranes are moist. LYMPHATICS: No cervical lymphadenopathy noted. RESPIRATORY: Lung sounds clear throughout bilaterally on room air. No accessory muscle use. CARDIAC: S1, S2 present. Heart rate regular, bradycardic in the 40s. No murmurs, rubs, or gallops appreciated. No lower extremity edema. +2 pedal pulses. ABDOMEN: Soft, nontender. Positive bowel sounds. MUSCULOSKELETAL: No clubbing or cyanosis noted. Full range of motion. No abnormalities. NEUROLOGIC: Moves all extremities. Sensation intact to light touch. No focal deficits appreciated. PSYCHIATRIC: Alert and oriented x3. No anxiety or depression noted. SKIN: No rashes or open areas appreciated. DIAGNOSTIC STUDIES/LAB DATA: Pertinent lab data: BUN creatinine ratio of 20.9 , total bilirubin 1.10, troponin 2 times consecutively were 0.06. Total protein is 6.0. Urine was negative. As far as diagnostics, chest x-ray showed no cardiopulmonary problems. ASSESSMENT AND PLAN: My impression is this is a 69-year-old male with a past medical history significant for paroxysmal atrial fibrillation and bradycardia, who was admitted on 01/31/19 for chest pain, ruled out ST elevation myocardial infarction and non-ST elevation myocardial infarction. We will go for a stress test tomorrow. Plan is: 1. Acute coronary syndrome. He had a WILDA score of 2. Repeat trops until peaked. May have a heart healthy, no caffeine diet for now, n.p.o. after midnight for exercise stress in the a.m., telemetry monitoring. 2. Benign prostatic hyperplasia. Continue tamsulosin and finasteride. 3. Paroxysmal atrial fibrillation. Not currently in atrial fibrillation and not on anticoagulation. The patient had declined previous anticoagulation due to nosebleeds. 4. Code status: Full code. 5. DVT prophylaxis: SCDs and Lovenox subcu. 6. Disposition: To admit OBV to the telemetry floor. 7. Condition: Guarded. I reviewed the plan with my attending and they agreed. YANNA PRISCILLA, OPERATIONS PLANNER [id number]/[facility] #: [id number] MARQUES
[2019-02-01 00:13] LABS: Troponin I 0.06 ng/mL (<0.04)
[2019-02-01 03:00] LABS: Troponin I 0.05 ng/mL (<0.04)
[2019-02-01 05:43] LABS: Troponin I 0.06 ng/mL (<0.04)
[2019-02-01 09:20] LABS: Troponin I 0.05 ng/mL (<0.04)
--- NOTE | 2019-02-01 09:32 | ECHO ---
*[facility]* [place] [address] Fax #: [phone] Transthoracic Echocardiogram Patient: Scot Silverio : 1950 Study Date: 02/01/2019 Age: 69 Gender: M HR: 39 bpm Height: 70 in /177.8 cm BSA: 1.95 m^2 Weight: 170.6 lb /77.6 kg BMI: 24.5 kg/m^2 *Chemical Process Project Engineer: * Tanvi Robbins [facility] *Referring Physician: * Arturo Donald *Reading Physician: * Jovany Chi MD Indications: Chest Pain, unspecified. History: ACS, PAF, vascular aneurysms. Conclusions Summary: - Left ventricle: The cavity size is normal. Wall thickness is mildly increased. Systolic function is normal. The estimated ejection fraction is 55-60%. Doppler parameters are consistent with abnormal left ventricular relaxation (grade 1 diastolic dysfunction). - Left atrium: The atrium is mildly dilated. - Mitral valve: There is mild regurgitation. - Aortic valve: Thickening, consistent with sclerosis. - Tricuspid valve: There is mild regurgitation. - Marked bradycardia. Similar to the prior study of 04/2017. Study data: Transthoracic echocardiogram. Procedure: Transthoracic echocardiography was performed. Image quality was good. Complete 2D, spectral Doppler, and color flow Doppler. Patient status: Observation. Patient room number: 441-01. The previous study was not available, so comparison is made to the report of April 2017. Rhythm: Bradycardia. Findings Left ventricle: The cavity size is normal. Wall thickness is mildly increased. Systolic function is normal. The estimated ejection fraction is 55-60%. Wall motion is normal; there are no regional wall motion abnormalities. Doppler parameters are consistent with abnormal left ventricular relaxation (grade 1 diastolic dysfunction). Right ventricle: Well visualized. The cavity size is at the upper limits of normal. Wall thickness is normal. Systolic function is normal. Systolic pressure is within the normal range. Ventricular septum: Well visualized. Left atrium: Well visualized. The atrium is mildly dilated. Right atrium: Well visualized. The atrium is mildly dilated. Atrial septum: Well visualized. Mitral valve: Well visualized. The leaflets are mildly thickened. No echocardiographic evidence for prolapse. There is no evidence of stenosis. There is mild regurgitation. Aortic valve: Well visualized. The valve is trileaflet. The leaflets are normal thickness. Thickening, consistent with sclerosis. There is no evidence of stenosis. There is no significant regurgitation. Tricuspid valve: Well visualized. The leaflets are normal thickness. There is no evidence of stenosis. There is mild regurgitation. Pulmonic valve: Well visualized. The leaflets are normal thickness. There is no evidence of stenosis. There is trace regurgitation. Aorta: The aorta is well visualized, normal size, and noncalcified. The aortic root appears normal. The aortic arch appears normal. Pericardium: There is no pericardial effusion. No evidence of pleural fluid accumulation. Pulmonary arteries: Well visualized. The main pulmonary artery is normal-sized. Systolic pressure is within the normal range. Systemic veins: Well visualized. Inferior vena cava: The vessel is normal in size. There is (>= 50%) respiratory change in the IVC dimension. Pulmonary veins: Visualization of the pulmonary venous anatomy is incomplete, but a significant abnormality is unlikely. Measurements Left ventricle Value Ref Aortic valve Value Ref JOANNE, LAX 5.4 cm 4.2 - 5.8 Maame diam, ED 2.0 cm ----- ESD, LAX 3.5 cm 2.5 - 4.0 Peak v, S 1.41 m/sec ----- FS, LAX 36 % 25 - 43 VTI, S 36.8 cm ----- PW, ED, LAX (H) 1.1 cm 0.6 - 1.0 Mean grad, S 5.0 mm Hg ----- E', lat maame, TDI (L) 9.1 cm/sec >=10.0 Peak grad, S 8.0 mm Hg --- -- E/e', lat maame, 6 LVOT/AV, VTI ratio 0.75 ----- TDI E', med maame, TDI (L) 5.2 cm/sec >=7.0 Mitral valve Value Ref E/e', med maame, 10 Peak E 0.53 m/sec ----- TDI Peak A 0.82 m/sec ----- E', avg, TDI 7.2 cm/sec Decel time 268 ms ----- E/e', avg, TDI 7 <=14 Peak E/A ratio 0.7 --- -- LVOT Value Ref Pulmonic valve Value Ref Peak belle, S 1.26 m/sec Peak v, S 0.76 m/sec ----- VTI, S 27.5 cm Peak grad, S 2.0 mm Hg ----- Peak grad, S 6 mm Hg Mean grad, S 3 mm Hg Tricuspid valve Value Ref TR peak v 2.59 m/sec <=2.8 Ventricular septum Value Ref Peak RV-RA grad, S 27 mm Hg ----- IVS, ED (H) 1.2 cm 0.6 - 1.0 Aortic root Value Ref Right ventricle Value Ref Root diam 3.2 cm <4.1 JOANNE, LAX 3.8 cm Root max diam, ED 3.2 cm <4.1 JOANNE minor ax, A4C (H) 3.6 cm 1.9 - 3.5 mid Ascending aorta Value Ref Pressure, S 30 mm Hg AAo AP diam, S 3.1 cm ----- Left atrium Value Ref Aortic arch Value Ref AP dim, ES (H) 4.10 cm 3.00 - Arch diam 2.4 cm ----- 4.00 ML dim, A4C 4.6 cm Decending aorta Value Ref SI dim, A4C 6.2 cm Cj peak belle 0.67 m/sec ----- Vol/bsa, ES, 1-p (H) 39 ml/m^2 12 - 37 A4C Pulmonary artery Value Ref Vol/bsa, ES, A/L (H) 43 ml/m^2 16 - 34 Pressure, S 28.0 mm Hg ----- Right atrium Value Ref Inferior vena cava Value Ref SI dim, ES (H) 6.3 cm 3.4 - 5.3 Diam 1.9 cm ----- ML dim, ES, A4C (H) 4.9 cm 2.6 - 4.4 SI dim, ES, A4C (H) 6.3 cm 3.4 - 5.3 Estimated RAP 3 mm Hg Legend: (L) and (H) олег values outside specified reference range. Prepared and electronically signed by Jovany Chi MD 02/01/2019 09:30
[2019-02-01 11:41] VITALS: BP 117/69
[2019-02-01 11:42] LABS: Troponin I 0.05 ng/mL (<0.04)
--- NOTE | 2019-02-01 15:33 | DS ---
AMENDED REPORT NOW INCLUDES DESIGNATED COSIGNER CC: Dr. Roper * DISCHARGE SUMMARY: DATE OF ADMISSION: 01/31/19 DATE OF DISCHARGE: 02/01/19 PROVIDER: Mohamud Sotelo NP. ATTENDING PHYSICIAN: Dr. Lindsay.* (DICTATED BY MOHAMUD SOTELO NP) PRIMARY CARE PHYSICIAN: Dr. Roper. PRIMARY DIAGNOSIS: Chest pain with bradycardia. SECONDARY DIAGNOSIS: Benign prostatic hyperplasia. PROCEDURES: The patient had stress test performed, which revealed low risk Dunn score. No definitive EKG changes of ischemia. The patient also had a transthoracic echocardiogram, which revealed an ejection fraction of 55% to 60% with abnormal left ventricular relaxation with grade 1 diastolic dysfunction, mildly dilated left atrium, mild regurgitation of mitral valve, aortic valve showed thickening consistent with sclerosis, tricuspid valve had mild regurgitation. The patient had marked bradycardia, but it was similar to prior study in 2018. PERTINENT LAB DATA: Includes elevated troponin between 0.05 and 0.06, which appeared to be his baseline when compared to previous lab draws upon previous admissions. HISTORY OF PRESENT ILLNESS/HOSPITAL COURSE: This is a 69-year-old male with a past medical history significant for paroxysmal atrial fibrillation and bradycardia, who presented to the emergency room after experiencing about 30 seconds to a minute worth of chest pain yesterday afternoon. Chest pain is likely due to brief ischemic demand. The patient has had no further chest pain upon admission. No further bradycardia in the 20s, though has been ranging between the 30s and 50s, asymptomatic. REVIEW OF SYSTEMS: An 11-point system review was performed. It was negative for any shortness of breath, chest pain, abdominal pain, nausea, vomiting. PHYSICAL EXAMINATION: Vital Signs: Temperature 97.6 Fahrenheit, 41 pulse, 16 respirations, 95% oxygen on room air, blood pressure 117/69. General: This is a well-developed, fit, older gentleman seen sitting up in bed, no acute distress noted. Eyes: Conjunctivae pink and moist. PERRLA. EOMs intact. ENT : Mucous membranes moist. Oropharynx clear. Lymphatics: Did not allow for assessment. Cardiac: S1, S2 present. Heart rate regular, bradycardic. No murmurs, gallops, or rubs appreciated. Pulmonary: Lung sounds clear throughout bilaterally on room air. No accessory muscle use noted. Abdomen: Soft, nontender with positive bowel sounds x4. Extremities: No edema noted. Musculoskeletal: 5/5 strength in all extremities. Neurological: Sensation intact to light touch. No focal deficits appreciated. Skin: No open areas or rashes appreciated. Psych: The patient is alert and oriented x4, agitated, had been planning to go AMA prior to this provider evaluating the patient. DISCHARGE PLAN: Diet can be regular diet. Activity is as tolerated. The patient may continue with his plan of doing marathon run this weekend with caution to stay hydrated. Return precautions: Return to the hospital should he experience any additional chest pain or shortness of breath. Plan for the bradycardia is to follow up with his home placement director and to also follow up with his PCP within a week. Continue tamsulosin and finasteride for his BPH. DISCHARGE MEDICATIONS: No new discharge medications. May continue his home medications, which were: 1. Vitamin B 1 cap p.o. daily. 2. Saw palmetto fruit 450 mg p.o. daily. 3. Multivitamin 1 tab p.o. daily. 4. Ferrous gluconate 325 mg p.o. daily. 5. Glucosamine chondroitin 1 tab p.o. daily. 6. Tamsulosin 0.4 mg p.o. daily. 7. Finasteride 5 mg p.o. daily. 8. EpiPen as needed. 9. Cholecalciferol 1000 units p.o. daily. 10. Aspirin 81 mg p.o. daily. CONDITION UPON DISCHARGE: Stable. DISPOSITION: To home. TIME SPENT: Time spent on the patient is about 30 minutes. MOHAMUD SOTELO, [employer] OPERATOR [id number]/[facility] #: [id number] [place]
[2019-02-01 18:39] LABS: Hepatitis C Antibody Negative (Negative)
== END 2019-02-01 14:22 | disposition home or self-care (01) ==
LOC: ED 16:47 → MEDTELE 20:51
PROVIDERS: ADMIT Internal Medicine; ATTEND Internal Medicine
DX: R07.89 Other chest pain (principal); R00.1 Bradycardia, unspecified; N40.0 Benign prostatic hyperplasia without lower urinary tract symptoms; I48.0 Paroxysmal atrial fibrillation; Z79.82 Long term (current) use of aspirin; Z79.899 Other long term (current) drug therapy
CPT/HCPCS: 36415; 71046; 80053; 81003; 82550; 82553; 83605; 83874; 84443; 84484; 85025; 85610; 85730; 86803; 93005; 93017; 93306; 96372; 99284; G0378; J1650